=== PATIENT | male | born 1945 | race Caucasian/White ===

== ENCOUNTER 2023-09-30 10:27 | Inpatient (IN) | payer OTHER, SELFPAY ==
[2023-09-29 11:58] VITALS: BP 93/64
[2023-09-29 12:53] LABS: % Basophils 0.3 % (0-2); % Eosinophils 0.4 % (0-6); % Immature Granulocytes 0.4 % (0-0.5); % Lymphocytes 12.5 % (20.5-51.1); % Monocytes 9.9 % (1.7-9.3); % Neutrophils 76.5 % (42.2-75.2); Absolute Eosinophils 0.1 10^3/uL (0-0.7); Absolute Immature Granulocytes 0.1 10^3/uL (0-0.05); Absolute Lymphocytes 1.7 10^3/uL (1.2-3.4); Absolute Monocytes 1.3 10^3/uL (0.1-0.6); Absolute Neutrophils 10.2 10^3/uL (1.4-6.5); Hematocrit 29.1 % (39.0-52.0); Hemoglobin 9.7 g/dL (13.0-18.0); Mean Corp Hgb Conc. 33.3 g/dL (33.0-37.0); Mean Corpuscular Hgb 28.7 pg (27.0-31.0); Mean Corpuscular Volume 86.1 fL (80.0-94.0); Mean Platelet Volume 9.2 fL (7.4-10.4); Nucleated Red Blood Cells % 0 % (-); Platelet Count 625 10^3/uL (130-400); Red Blood Cell Count 3.38 10^6/uL (4.70-6.10); White Blood Cell Count 13.4 10^3/uL (4.8-10.8)
[2023-09-29 13:10] LABS: ALT (SGPT) 16 U/L (0-50); AST (SGOT) 22 U/L (17-59); Alkaline Phosphatase 86 U/L (38-126); Blood Urea Nitrogen 25 mg/dl (9-20); Calcium 8.4 mg/dl (8.4-10.2); Carbon Dioxide 26 mmol/L (22-30); Chloride 99 mmol/L (98-107); Glucose 100 mg/dl (70-99); Lipase 76 U/L (23-300); Potassium 3.3 mmol/L (3.5-5.1); Sodium 133 mmol/L (135-145); Total Bilirubin 0.5 mg/dl (0.2-1.3); Total Protein 5.8 g/dl (6.3-8.2); eGFR > 60.00
--- NOTE | 2023-09-29 15:30 | ED.GENMED ---
History of Present Illness
General
Chief Complaint: Abdominal Pain
Source: patient
Exam Limitations: none
Time Seen by Provider: 09/29/23 15:07
Nursing documentation reviewed up to this point in time: agreed with
Travel History
Have you had any contact with someone who has COVID-19?: No
Do you have any symptoms of coronavirus? Fever > 100 degrees, chills, cough, shortness of breath, sore throat, loss of taste or smell, muscle aches, or headache?: No
History of Present Illness
History of Present Illness:
Patient to ED by EMS. According to his sister, patient has not been eating or drinking much for the past 3-4 weeks. Over the past 2 days this has gotten worse. She states he has had vomiting and diarrhea for the past few days. No fever/chills.
Sister states he screams with abdominal pain at night, although he denies any abdominal pain. He is unsure why he is here. States he was visiting with sister and the next thing he new he was placed here. Appears weak, dry. Last admission here
was in april for colitis. He was then sent to Rehab although his sistser does not feel that he improved there. She reports he spends most of day in bed, does not want to get up, sit in chair.
Past History
Past History
ED Past Medical History: Arrthythmia (afib), CVA, HTN and Hypercholesterolemia
ED Past Surgical History: None
Social History
Tobacco: Former smoker (quit x 30 yrs)
Alcohol: None
Drug: None
Review of Systems
Review of Systems
Allergies reviewed?: Yes
All Other Systems: ROS reviewed and negative except as documented in HPI and ROS
Constitutional: Reports fatigue
EENT: Reports no symptoms
Respiratory: Reports no symptoms
Cardiac: Reports no symptoms
ABD/GI: Reports vomiting and diarrhea
: Reports no symptoms
Musculoskeletal: Reports back pain (low back pain)
Skin: Reports no symptoms
Neurological: Reports weakness
Psychiatric: Reports no symptoms
Phy Exam
General Physical Exam
General Presentation: mild distress
General age: appears older than age
General Skin: warm and dry
General Habitus: cachetic and frail
General Mental: alert
ENT Exam
ENT Exam: other (Dry mucous membranes)
Cardiovascular Exam
Cardiovascular Exam: regular rate/rhythm and no edema
Pulmonary Exam
Pulmonary Exam: lungs clear and no respiratory distress
Gastrointestinal Exam
Gastrointestinal Exam: normal bowel sounds, non tender, soft, no organomegaly, no pulsatile mass, non distended and no cva tenderness
Rectal Exam: normal external exam, normal sphincter tone and soft stool
Stool: black
Guaiac Status: positive
Musculoskeletal Exam
Musculoskeletal Exam: full ROM and neuro vasc intact
Psychiatric Exam
Psychiatric Exam: normal mood/affect
Course
Orders/Labs/Results
Orders:
Orders
09/29/23 12:04
Complete Blood Count/With Diff Urgent
Comprehensive Metabolic Panel Urgent
Lipase Urgent
TSH Reflex To Free T4 Urgent
Comment: ADD ON
09/29/23 Dinner
Clear Liquid
At Your Request: Full Participation
Does patient need a safe tray?: No
09/29/23 15:21
0.9% Sodium Chloride 1000 ml [Nss] 1,000 ml IV BOLUS
09/29/23 15:22
Iohexol [Omnipaque] See Protocol PO NOW STA
Ondansetron Injectable [Zofran] 4 mg IV NOW STA
09/29/23 15:31
CT Abd/pelvis W Iv Cont Urgent
Comment:
Reason For Exam: vomiting, diarrhea
09/29/23 15:32
Pantoprazole [Protonix IV] 40 mg IV NOW STA
09/29/23 15:35
Type+Screen Urgent
Lipase Urgent
Urinalysis Reflex To Culture Urgent
Date Specimen was Collected: 09/29/23
Time Specimen was Collected: 15:28
Urine Microscopic Reflex Cult Urgent
Urine Culture Urgent
THOMAS Source: U
Specimen Description:
Date Specimen was Collected: 09/29/23
Time Specimen was Collected: 15:28
09/29/23 15:51
Potassium Chloride [KCl] 40 meq 0.9% Sodium Chloride 250 ml [Nss] 250 ml IV NOW
09/29/23 19:36
Admit/Transfer Patient As Directed
Co-Sign Provider:
Level of Care: Observation services
Assign to:: Medical/Surgical
Physician / Group: philipp
Diagnosis: fecal impaction, anemia
09/29/23 19:37
Code Status As Directed
Resuscitation Status: Full Code
09/29/23 21:07
Activity As Directed
Activity Level: As Tolerated
Pneumatic Compression Sleeves As Directed
Type: Knee high
Vital Signs As Directed
Frequency: Per unit guidelines
DX Deep Vein Thrombosis Video Routine
09/29/23 22:00
Flush (0.9% Sodium Chloride) [Flush (Nss)] See Dose Instructions IV PER PROTOCOL
09/29/23 22:19
Pt Screening Request from Kaye Routine
09/30/23 06:00
Complete Blood Count/With Diff IN AM
Comprehensive Metabolic Panel IN AM
Ferritin Routine
Comment: ADD ON
Folate Routine
Comment: ADD ON
Iron Routine
Comment: ADD ON
Total Iron Binding Routine
Comment: ADD ON
Vitamin B12 Routine
Comment: ADD ON
09/30/23 07:[address] Non Medication Order As Directed
Physician Order: Please confirm home med rec and TT MD. Greco.
09/30/23 07:53
GASTROINTESTINAL CONSULT Routine
Consulting Provider: Yajaira Newman
Was physician already notified: Yes
09/30/23 08:00
0.9% Sodium Chloride [Nss (Preservative Free)] 10 ml IV BID
Pantoprazole [Protonix IV] 40 mg IV BID
09/30/23 10:25
Add On- LAB Routine
Tests Added?: iron,ferritin,tibc, b12 and folate level
Abnormal Lab Results
09/29/23 09/29/23 09/30/23
12:04 15:35 06:00
WBC 13.4 H 10^3/uL
(4.8-10.8)
RBC 3.38 L 10^6/uL 3.29 L 10^6/uL
(4.70-6.10) (4.70-6.10)
Hgb 9.7 L g/dL 9.5 L g/dL
(13.0-18.0) (13.0-18.0)
Hct 29.1 L % 29.1 L %
(39.0-52.0) (39.0-52.0)
MCHC 32.6 L g/dL
(33.0-37.0)
Plt Count 625 H 10^3/uL 437 H D 10^3/uL
(130-400) (130-400)
Abs Immat Gran (auto) 0.1 H 10^3/uL
(0-0.05)
Absolute Neuts (auto) 10.2 H 10^3/uL 6.7 H 10^3/uL
(1.4-6.5) (1.4-6.5)
Absolute Monos (auto) 1.3 H 10^3/uL 0.8 H 10^3/uL
(0.1-0.6) (0.1-0.6)
Neutrophils % 76.5 H %
(42.2-75.2)
Lymphocytes % 12.5 L % 16.3 L %
(20.5-51.1) (20.5-51.1)
Monocytes % 9.9 H %
(1.7-9.3)
Sodium 133 L mmol/L
(135-145)
Potassium 3.3 L mmol/L
(3.5-5.1)
BUN 25 H mg/dl 23 H mg/dl
(9-20) (9-20)
Glucose 100 H mg/dl
(70-99)
Iron 21 L ug/dl
(49-181)
% Saturation 7 L %
(20-50)
Ferritin 9.1 L ng/ml
(17.9-464.0)
Total Protein 5.8 L g/dl 5.5 L g/dl
(6.3-8.2) (6.3-8.2)
Albumin 3.0 L g/dl 2.7 L g/dl
(3.5-5.0) (3.5-5.0)
Urine Ketones Trace A
(Negative)
Urine Bilirubin 1+ A
(Negative)
Leukocyte Esterase Rfl Trace A
(Negative)
Urine Bacteria (Reflex) Moderate A
(Negative)
09/30/23 06:00
09/30/23 06:00
Vital Signs
Initial and Last Documented VS:
Initial Vital Signs
Temp Pulse Resp BP Pulse Ox
98.0 F 79 18 93/64 92
09/29/23 11:58 09/29/23 11:58 09/29/23 11:58 09/29/23 11:58 09/29/23 11:58
Last Documented Vital Signs
Temp Pulse Resp BP Pulse Ox
98.1 F 89 17 99/69 98
10/01/23 07:43 10/01/23 07:43 10/01/23 07:43 10/01/23 12:50 10/01/23 07:43
*Radiology
Radiology exam reviewed: radiology read reviewed
*Pulse Oximetry
Patient hypoxic: no
*Critical Care Note
Total Time (30-74mins, 75-104mins- exclusive of procedures): Not Applicable
Update Note
Update Note:
Patient to ED for weakness, failure to thrive, vomiting, diarrhea according to his sister. Patient is not sure why he is here. He denies any complaints. Sister denies any diagnosis of dementia but reports 'he has been off lately'. He appears weak
and frail. Oriented to person and place. Stool black, heme pos. Hgb decreased from admission in apr. Will admit for rectal bleeding. IVF, protonix initiated. K 3.3, KCL ordered. Sister and patient are agreeable to admission.
ED Attending Note
-
Portions of this chart may have been created with voice recognition software.� Occasional wrong word or��sound alike� substitutions may have occurred due to the inherent limitations of voice recognition software.
Discharge Plan
Departure
Patient Disposition: Admit
Date of Disposition: 09/29/23
Time of Disposition: 18:20
Presentation/result/management discussed w/ accepting MD/DO: Hospitalist
Condition: Fair
Covid-19: Not Applicable
Discharge Problem:
GI bleed, Failure to thrive
Interventions
Interventions:
*Risk Screen - Suicide Last Done: 09/29/23 21:54
*General Assessment Last Done: 09/29/23 12:01
*Neglect/Abuse Screening Last Done: 09/29/23 12:01
ED- Fall Risk Assessment Last Done: 09/29/23 15:25
*ED COVID-19 Vaccine History Last Done: 09/29/23 15:25
*Nursing Disposition Last Done: 09/29/23 20:48
RU-Pemmyq-Cuwevuwywy Assessment Last Done: 09/29/23 15:25
Discharge Date and Time
Discharge Date/Time: 09/29/23 21:21
[2023-09-29] MEDS: ZOFRAN 4 MG IV (15:57)
[2023-09-29] MEDS: NSS 1000 IV (15:57)
[2023-09-29] MEDS: PROTONIX IV 40 MG IV (15:57)
[2023-09-29 15:58] LABS: Urine Albumin Negative (Neg - Trace); Urine Bilirubin 1+ (Negative); Urine Character Clear (Clear); Urine Color Yellow; Urine Glucose Negative (Negative); Urine Ketone Trace (Negative); Urine Leukocyte Trace (Negative); Urine Nitrite Negative (Negative); Urine Occult Blood Negative (Negative); Urine Specific Gravity 1.025 (<1.030); Urine Urobilinogen 1+ (Neg - 1+)
[2023-09-29 16:05] LABS: Urine Mucus Moderate
[2023-09-29 16:06] LABS: Urine Bacteria Moderate (Negative); Urine Red Blood Cell 0-2 /HPF (0-2); Urine Squamous Cell 16-20 /LPF (Few)
[2023-09-29 16:14] LABS: Lipase 50 U/L (23-300)
[2023-09-29] MEDS: KCL 270 MEQ IV (16:33)
--- NOTE | 2023-09-29 18:37 | PHANOTE ---
Med Rec Note:
Pt states he does not know his medications, pt states sister/sister in law takes care of his medications. Attempted to will call order clerk to Notify Komal ([phone]), rang once and went to voicemail.
Home med list compiled from EMS face sheet and Dr Montes. Left unconfirmed due to being unable to confirm pt's home meds.
--- NOTE | 2023-09-29 19:39 | HPS.HSE ---
Addendum entered and electronically signed by Adeel Mann MD 09/29/23 21:55:
Protonix 40 IV BID started.
Original Note:
Family Physician
-
Family Physician: Sahil Milian
Chief Complaint
-
vomiting, diarrhea
History of Present Illness
78-year-old male with past medical history of atrial fibrillation, CVA, chronic HFpEF, hypertension, hypercholesteremia, GERD, CKD 3B presenting with decreased eating and drinking for the past 3 to 4 weeks. He has had vomiting and diarrhea for the
past few days. No fevers or chills. Sister states that he screams with abdominal pain at night although he denies any abdominal pain. He is not sure when his last bowel movement was.
Medical History
Past Medical History
Past Medical History: Reports Other (atrial fibrillation, CVA, chronic HFpEF, hypertension, hypercholesteremia, GERD, CKD 3B )
Past Surgical History: Reports None
Social History
Tobacco: Former Smoker
Alcohol: Occasional
Drug: None
Family History
Family History: Not pertinent
Allergies / Home Medications
Allergies reflects when Allergies were last updated in [facility].
Home Medications with original date entered in [facility]
Allergy/Medication List:
Allergies
Allergy/AdvReac Type Severity Reaction Status Date / Time
No Known Allergies Allergy Verified 09/29/23 11:58
Home Medications
omeprazole 20 mg capsule,delayed release 20 mg PO DAILY Gastrointestinal Issue 09/09/18
apixaban 5 mg tablet (Eliquis) 5 mg PO BID #120 tabs 09/14/18
furosemide 20 mg tablet 20 mg PO BID Fluid Retention/Swelling 04/17/23
losartan 25 mg tablet 25 mg PO DAILY Blood Pressure 04/17/23
rosuvastatin 5 mg tablet (Crestor) 5 mg PO DAILY High Cholesterol 04/17/23
metoprolol succinate 25 mg tablet,extended release 24 hr 25 mg PO DAILY 09/29/23
Review of Systems
-
History Source: Patient
A 12 point ROS was completed and negative except as noted: Yes
Constitutional: Reports No Symptoms
EENT: Reports No Symptoms
Respiratory: Reports No Symptoms
Cardiac: Reports No Symptoms
Abdomen/GI: Reports See HPI
: Reports No Symptoms
Musculoskeletal: Reports No Symptoms
Skin: Reports No Symptoms
Neurological: Reports No Symptoms
Endocrine: Reports No Symptoms
Hematologic/Lymphatic: Reports No Symptoms
Psych: Reports No Symptoms
Physical Exam
Vital Signs
Vital Signs
Temp Pulse Resp BP Pulse Ox
98.0 F 79 18 93/64 92
09/29/23 11:58 09/29/23 11:58 09/29/23 11:58 09/29/23 11:58 09/29/23 11:58
Physical Exam
General: Well Developed, Well Nourished and No Apparent Distress
HEENT: NormoCephalic, Moist mucous membranes and Atraumatic
Respiratory: Clear
Cardiac: S1/S2 and Regular Rhythm; No Murmur or Rub
GI: Soft, Non Tender, Non Distended, Normal Bowel Sounds and Tender; No Organomegaly
Rectal: Deferred by Provider
Musculoskeletal: No Clubbing, No Cyanosis and No Edema
Skin: No Rash
Neuro: Nonfocal/grossly intact
Laboratory Results
-
09/29/23 12:04
09/29/23 12:04
Laboratory Results
Total Bilirubin 0.5 mg/dl (0.2-1.3) 09/29/23 12:04
AST 22 U/L (17-59) 09/29/23 12:04
ALT 16 U/L (0-50) 09/29/23 12:04
Alkaline Phosphatase 86 U/L (38-126) 09/29/23 12:04
Lipase 50 U/L (23-300) 09/29/23 15:35
Data Reviewed
-
Lab Data: Labs Reviewed by me
Old Records: Reviewed
Impression/Plan
-
IMPRESSION:
PLAN:
# Fecal impaction
-Diarrhea could be overflow incontinence
-CT abdomen pelvis shows significant stool distention of the rectum most compatible with fecal impaction
-Check TSH
-Clear liquid diet
-GI consulted due to concern for underlying GI malignancy
# Progressive anemia concerning for underlying GI malignancy
-Hemoccult positive
-Hemoglobin of 9.7 from 15 in March
-GI consulted
# Hypokalemia
-Replete potassium
Atrial fibrillation
-Hold Eliquis
Chronic HFpEF
-Hold Lasix
History of CVA
Essential hypertension
-Hold losartan due to systolic blood pressure 90s
Hypercholesterolemia
-Continue statin
CKD 3B
-Renal function at baseline
GERD
Full code
DVT prophylaxis�SCDs
Clear liquid diet
[2023-09-29 21:18] VITALS: BP 119/81
--- NOTE | 2023-09-29 21:23 | PTCARENOTE ---
[facility] r[facility], and medsurg. pt was able to get out of the stretcher to standing scale then to bed with a r.w and a assist x 2. pt is on a bed alarm and has call arthur in reach. will continue to monitor.
[2023-09-29 22:25] LABS: TSH Reflex To Free T4 4.63 uIU/ml (0.47-4.68)
[2023-09-29 23:00] VITALS: BP 125/70
[2023-09-30 07:00] VITALS: BP 116/73
[2023-09-30 07:06] LABS: % Basophils 0.8 % (0-2); % Immature Granulocytes 0.4 % (0-0.5); % Lymphocytes 16.3 % (20.5-51.1); % Monocytes 8.5 % (1.7-9.3); Absolute Basophils 0.1 10^3/uL (0-0.2); Absolute Eosinophils 0.1 10^3/uL (0-0.7); Absolute Lymphocytes 1.5 10^3/uL (1.2-3.4); Absolute Monocytes 0.8 10^3/uL (0.1-0.6); Absolute Neutrophils 6.7 10^3/uL (1.4-6.5); Hematocrit 29.1 % (39.0-52.0); Hemoglobin 9.5 g/dL (13.0-18.0); Mean Corp Hgb Conc. 32.6 g/dL (33.0-37.0); Mean Corpuscular Hgb 28.9 pg (27.0-31.0); Mean Corpuscular Volume 88.4 fL (80.0-94.0); Mean Platelet Volume 9.3 fL (7.4-10.4); Nucleated Red Blood Cells % 0 % (-); Platelet Count 437 10^3/uL (130-400); Red Blood Cell Count 3.29 10^6/uL (4.70-6.10); Red Cell Dist. Width 14.4 % (11.5-14.5); White Blood Cell Count 9.2 10^3/uL (4.8-10.8)
[2023-09-30 07:12] LABS: ALT (SGPT) 14 U/L (0-50); AST (SGOT) 19 U/L (17-59); Albumin 2.7 g/dl (3.5-5.0); Alkaline Phosphatase 80 U/L (38-126); Blood Urea Nitrogen 23 mg/dl (9-20); Calcium 8.5 mg/dl (8.4-10.2); Carbon Dioxide 27 mmol/L (22-30); Chloride 103 mmol/L (98-107); Glucose 91 mg/dl (70-99); Sodium 137 mmol/L (135-145); Total Bilirubin 0.5 mg/dl (0.2-1.3); Total Protein 5.5 g/dl (6.3-8.2); eGFR > 60.00
[2023-09-30 07:26] LABS: Potassium 4.3 mmol/L (3.5-5.1)
[2023-09-30] MEDS: NSS (PRESERVATIVE FREE) 10 ML IV ×2 (09:04→20:39)
[2023-09-30] MEDS: PROTONIX IV 40 MG IV ×2 (09:05→20:38)
--- NOTE | 2023-09-30 10:24 | W.PN.HOSP.TC ---
Today's Communication/Plan
-
Enema ordered
anemia panel
home med rec pending
GI eval
PPI
Assessment / Plan
Assessment / Plan
# Fecal impaction
#Abdomen pain/nausea/vomiting 2/2 above
-Diarrhea could be overflow incontinence
-CT abdomen pelvis shows significant stool distention of the rectum most compatible with fecal impaction
-Clear liquid diet
-Enema ordered.
-GI consulted
# Progressive anemia concerning for underlying GI malignancy
-Hemoccult positive
-Hemoglobin of 9.7 from 15 in March
-Check anemia panel
-Denies ever undergoing colonoscopy.
-Blood consent scanned into [employer].
-GI consulted
#Thrombocytosis
-monitor for now.
# Hypokalemia
-Replete/monitor
Atrial fibrillation
-Hold Eliquis
Chronic HFpEF
-Hold Lasix
History of CVA
Hx of saddle PE in 2019
-Eliquis held
Essential hypertension
-Hold losartan due to systolic blood pressure 90s
Hypercholesterolemia
-Continue statin
CKD 3B
-Renal function at baseline
GERD
Full code
DVT prophylaxis�SCDs
await med rec
Anticipated Discharge: > 48 hours
Subjective/Interval History
-
Date of Service: September 30, 2023
states of mild abdomen discomfort
no nausea or vomiting
Objective Data
-
Labs:
Laboratory Results
09/30/23
06:00
WBC 9.2
Hgb 9.5 L
Hct 29.1 L
Plt Count 437 H D
Sodium 137
Potassium 4.3 D
Chloride 103
Carbon Dioxide 27
BUN 23 H
Creatinine 1.0
Glucose 91
Calcium 8.5
Total Bilirubin 0.5
AST 19
ALT 14
Alkaline Phosphatase 80
Vital Signs:
Vital Signs
Temp Pulse Resp BP Pulse Ox
97.8 F 95 18 116/73 97
09/30/23 07:00 09/30/23 07:00 09/30/23 07:00 09/30/23 07:00 09/30/23 07:00
Physical Exam
-
General: No Apparent Distress, Appears Chronically Ill and Cachectic
HEENT: Normocephalic, Atraumatic and Moist Mucous Membranes
Respiratory: Clear to Auscultation
Cardiac: Regular Rhythm and S1/S2; Negative Murmur, Rub or Gallop
GI: Soft, Nontender, Normal Bowel Sounds and Distended; Negative Organomegaly
Rectal: Deferred by Provider
Musculoskeletal: No Clubbing, No Cyanosis and No Edema
Skin: Negative Rash
Neuro: Awake, No Motor Deficits and Nonfocal/Grossly Intact
Psych: Calm
Data Reviewed
-
Total Time Spent with Patient (in minutes): 55
[2023-09-30 11:06] LABS: Iron 21 ug/dl (49-181)
[2023-09-30 11:07] LABS: Percent Saturation 7 % (20-50); Total Iron Binding Capacity 287 ug/dl (261-462)
--- NOTE | 2023-09-30 11:08 | CM ---
CM met with pt at bedside - initial assignment completed
Pt reports he lives with his sister in law in a one story home
He walks with out assist, does some shopping, meal prep, no longer drives
No DME in home
Denies past HH/SNF
Will have ride home at d/c
PCP - Dr Param love
Pharm - [facility]
Discussed HOWE
Plan - anticipate home to previous setting, needs tbd
--- NOTE | 2023-09-30 11:40 | CON.GI ---
Addendum entered and electronically signed by Yajaira Newman DO 09/30/23 19:12:
Patient seen and examined independently of the physician social work assistant. I agree with her note with my additions below
Ramos is a 78-year-old male with history of atrial fibrillation on Eliquis, CVA, CKD, GERD who came to the emergency room on 09/28 initially with nausea vomiting likely secondary to a fecal impaction. Patient states he has not moved his bowels in
over a week which normally is every other day. He denies any changes in medications. He is persistent about wanting to be discharged. He just wants us to help him move his bowels then he wants to go home. I discussed with him that he has iron
deficiency anemia and he could have a malignancy in his GI tract. He has never had a colonoscopy or an endoscopy. He says he understands
# Constipation -distention of the rectum is most prominent on CT imaging. Digitally unable to reach any significant stool
-- Enema then magnesium citrate then you will need to go home on a bowel regimen
-- Unclear what is causing this significant constipation in the setting of never having a colonoscopy and iron deficiency anemia I would recommend a slow preparation and proceed with colonoscopy
# Iron deficiency anemia -patient getting IV iron. Would avoid oral iron especially in the setting of a significant constipation
-- I am concerned about a GI malignancy
-- I had a long conversation with the patient. He has no family that is alive. He has a brother who . [id number]. He states he does not want undergo any procedures and he understands that he could have a
malignancy and he is okay with this. He would prefer to just have bowel movements and then to be discharged.
-- I made him repeat everything saying he was clear that he could have a cancer and we may be discharging him without that knowledge. He agreed to that
-- If he changes his mind we can always revisit that
-- PPI
-- Patient denies any dysphagia, GERD, chronic nausea vomiting. Denies weight loss
Original Note:
Consultation
-
Date/Time Consultation Requested: 09/30/23 0753
Date/Time Consultation Performed: 09/30/23 1115
Requesting Provider: Dr. Rios
Performing Provider: Dr. Newman / Jyoti Kaur PA-C
Reason for Consultation: anemia, constipation
Medical History
Chief Complaint / HPI
Chief Complaint: constipation
History of Present Illness:
This is a 78 year old male with a past medical history of atrial fibrillation (on Eliquis), CVA, HTN, hyperlipidemia, CKD and GERD who presented to the ER yesterday 09/28 with complaints of vomiting, diarrhea, decreased appetite and weakness. Patient
is somewhat of a poor historian, mildly confused but very pleasant, and cannot elaborate further on what brought him to the hospital. He currently denies abdominal pain, nausea, vomiting, diarrhea, fevers or chills. He states he has been
constipated, which is a chronic issue for him, which he tells me he usually manages by drinking coffee. His typical bowel habit is a formed bowel movement once a day. He states his last BM was 1 week ago. He denies any black, tarry or bloody stools.
He admits to heartburn, which he typically gets daily after drinking coffee. Tums helps relieve the heartburn. He also complains of decreased appetite and thinks he has lost weight but cannot estimate how much. He has never had an endoscopy or
colonoscopy. He was admitted at for colitis in March. Patient is on Eliquis, patient is uncertain but last dose assumed to be day of arrival yesterday. Labs in the ER showed leukocytosis with WBC count of 13.4, Hgb 9.7 with normocytic
indices, platelets 625, INR 1.58 and elevated PT 19.1. Creatinine 1.0, BUN 23, with normal LFTs (total bili 0.5, AST 19, ALT 14, and alk phos 80). Serum iron and iron sat are low, ferritin is still pending. CT scan of the abdomen/pelvis shows fecal
impaction with large colonic stool burden. No evidence of bowel wall thickening, obstruction or inflammation. He denies any family history of colon cancer or GI malignancies.
Past Medical History
Past Medical History: Other (atrial fibrillation (on Eliquis), CVA, HTN, hyperlipidemia, CKD and GERD)
Past Surgical History: Other (adenoids)
Social History
Tobacco: Former Smoker (quit 20 years ago)
Alcohol: Occasional (1 glass of wine once a week)
Drug: None
Living: Alone (he reports he lives in his own apartment at [facility] with family who live in the same building (his sister, Stefanie))
Employment: Retired (worked in a [employer])
Family History
Family History: Other (no family history of GI malignancies or IBD)
Allergies / Home Medications
Allergy/AdvReac Type Severity Reaction Status Date / Time
No Known Allergies Allergy Verified 09/29/23 11:58
Medication Instructions Recorded
omeprazole 20 mg capsule,delayed 20 mg PO DAILY Gastrointestinal 09/09/18
release Issue
furosemide 20 mg tablet 20 mg PO BID Fluid 04/17/23
Retention/Swelling
losartan 25 mg tablet 25 mg PO DAILY Blood Pressure 04/17/23
rosuvastatin 5 mg tablet (Crestor) 5 mg PO DAILY High Cholesterol 04/17/23
metoprolol succinate 25 mg 25 mg PO DAILY Blood Pressure 09/29/23
tablet,extended release 24 hr
apixaban 5 mg tablet (Eliquis) 5 mg PO BID Blood Clot 09/30/23
Prevention/Tx
Review of Systems
-
History Source: Patient
All other systems: A 12 pt ROS was Negative except as stated above in HPI
Vital Signs
Temp Pulse Resp BP Pulse Ox
97.8 F 95 18 116/73 97
09/30/23 07:00 09/30/23 07:00 09/30/23 07:00 09/30/23 07:00 09/30/23 07:00
Physical Exam
Exam
General: Other (thin-appearing male in no apparent distress)
Respiratory: Clear
Cardiac: Regular Rhythm
GI: Soft, Non Tender, Non Distended and Normal Bowel Sounds
Rectal: Brown, Hem Positive and Other (soft, brown, heme POSITIVE stool in the rectal vault, no palpable stool impaction)
Skin: Warm and Dry
Neuro: Awake, Alert and Oriented (x 2 (person, time))
Psych: Calm
Results
WBC 9.2 10^3/uL (4.8-10.8) 09/30/23 06:00
Hgb 9.5 g/dL (13.0-18.0) L 09/30/23 06:00
Hct 29.1 % (39.0-52.0) L 09/30/23 06:00
MCV 88.4 fL (80.0-94.0) 09/30/23 06:00
Plt Count 437 10^3/uL (130-400) H D 09/30/23 06:00
Absolute Neuts (auto) 6.7 10^3/uL (1.4-6.5) H 09/30/23 06:00
Sodium 137 mmol/L (135-145) 09/30/23 06:00
Potassium 4.3 mmol/L (3.5-5.1) D 09/30/23 06:00
Chloride 103 mmol/L (98-107) 09/30/23 06:00
Carbon Dioxide 27 mmol/L (22-30) 09/30/23 06:00
BUN 23 mg/dl (9-20) H 09/30/23 06:00
Creatinine 1.0 mg/dL (0.7-1.3) 09/30/23 06:00
Calcium 8.5 mg/dl (8.4-10.2) 09/30/23 06:00
Total Bilirubin 0.5 mg/dl (0.2-1.3) 09/30/23 06:00
AST 19 U/L (17-59) 09/30/23 06:00
ALT 14 U/L (0-50) 09/30/23 06:00
Alkaline Phosphatase 80 U/L (38-126) 09/30/23 06:00
Lipase 50 U/L (23-300) 09/29/23 15:35
Diagnostic Image Results:
CT abdomen/pelvis 09/28/22:
� Significant stool distention of the rectum is most compatible with a fecal impaction. Large stool burden elsewhere in the colon.
Prior GI Procedures:
EGD: never
Colonoscopy: never
Assessment / Plan
-
78 year old male with atrial fibrillation (on Eliquis), CVA, HTN, hyperlipidemia, CKD and GERD who presented to the ER yesterday 09/28 with complaints of vomiting, diarrhea, decreased appetite and weakness. Patient is somewhat of a poor historian,
mildly confused but very pleasant, and cannot elaborate further on what brought him to the hospital. He currently denies abdominal pain, nausea, vomiting, diarrhea, fevers or chills. He states he has been constipated, which is a chronic issue for
him, which he tells me he usually manages by drinking coffee. His typical bowel habit is a formed bowel movement once a day. He states his last BM was 1 week ago. He denies any black, tarry or bloody stools. He admits to heartburn, which he
typically gets daily after drinking coffee. Tums helps relieve the heartburn. He also complains of decreased appetite and thinks he has lost weight but cannot estimate how much. He has never had an endoscopy or colonoscopy. He was admitted at for
colitis in March. Patient is on Eliquis, patient is uncertain but last dose assumed to be day of arrival yesterday. Labs in the ER showed leukocytosis with WBC count of 13.4, Hgb 9.7 with normocytic indices, platelets 625, INR 1.58 and elevated
PT 19.1. Creatinine 1.0, BUN 23, with normal LFTs (total bili 0.5, AST 19, ALT 14, and alk phos 80). Serum iron and iron sat are low, ferritin is still pending. CT scan of the abdomen/pelvis shows fecal impaction with large colonic stool burden. No
evidence of bowel wall thickening, obstruction or inflammation. No family history of colon cancer or GI malignancies.
IMPRESSION / PLAN:
Anemia, with heme positive stools, concern for GI bleeding
-Hgb 9.5 (was 9.7 on admission) with normocytic indices
-baseline Hgb was in the 13-15 range previously
-serum iron, iron sat low, ferritin pending
-Eliquis on hold, last dose presumed to be day of admission 09/29/23
-trend Hgb
-transfuse if Hgb falls below 7
-continue PPI (pantoprazole)
-endoscopy and colonoscopy for further workup of the anemia/heme (+) stools - inpatient vs outpatient
Constipation/Fecal Impaction
-pt reports chronic constipation and last bowel movement 1 week ago
-CT showing significant stool distension of the rectum, suggesting fecal impaction
-no palpable impaction on digital rectal exam
-agree with enema, which has been ordered
-add Miralax
-TSH pending
-continue clear liquids
Other medical issues managed as per hospitalist.
-
-
Thank you for consultation and allowing me to participate in the patient's care. Please call the operations staff specialist security GI physician during the after hours with any questions or concerns.
[2023-09-30 14:12] LABS: Ferritin 9.1 ng/ml (17.9-464.0)
[2023-09-30 14:43] LABS: Folate 14.5 ng/ml (2.76-20); Vitamin B12 573 pg/ml (239-931)
[2023-09-30] MEDS: MIRALAX 17 GRAMS PO (14:49)
[2023-09-30] MEDS: FERRLECIT 110 MG IV (14:49)
[2023-09-30 15:00] VITALS: BP 103/66
--- NOTE | 2023-09-30 18:00 | PTCARENOTE ---
Addendum entered by Kyra Deluna RN 10/01/23 06:42:
ing enema. Black stool noted.
Original Note:
Pt received Tap water enema w/o difficulty. Pt tolerated well. Pt was already having BM while start
[2023-09-30] MEDS: CITROMA 300 ML PO (20:35)
[2023-09-30 23:50] VITALS: BP 103/61
[2023-10-01 07:43] VITALS: BP 99/69
[2023-10-01] MEDS: NSS (PRESERVATIVE FREE) 10 ML IV ×2 (08:39→19:51)
[2023-10-01] MEDS: MIRALAX 17 GRAMS PO (08:39)
[2023-10-01] MEDS: PROTONIX IV 40 MG IV ×2 (08:40→19:51)
[2023-10-01 09:11] LABS: % Basophils 1.4 % (0-2); % Eosinophils 3.4 % (0-6); % Immature Granulocytes 0.5 % (0-0.5); % Lymphocytes 24.3 % (20.5-51.1); % Monocytes 9.8 % (1.7-9.3); % Neutrophils 60.6 % (42.2-75.2); Absolute Basophils 0.1 10^3/uL (0-0.2); Absolute Eosinophils 0.2 10^3/uL (0-0.7); Absolute Lymphocytes 1.1 10^3/uL (1.2-3.4); Absolute Monocytes 0.4 10^3/uL (0.1-0.6); Absolute Neutrophils 2.7 10^3/uL (1.4-6.5); Hematocrit 24.8 % (39.0-52.0); Hemoglobin 8.1 g/dL (13.0-18.0); Mean Corp Hgb Conc. 32.7 g/dL (33.0-37.0); Mean Corpuscular Hgb 28.2 pg (27.0-31.0); Mean Corpuscular Volume 86.4 fL (80.0-94.0); Nucleated Red Blood Cells % 0 % (-); Platelet Count 367 10^3/uL (130-400); Red Blood Cell Count 2.87 10^6/uL (4.70-6.10); Red Cell Dist. Width 14.2 % (11.5-14.5); White Blood Cell Count 4.4 10^3/uL (4.8-10.8)
[2023-10-01 09:30] LABS: Blood Urea Nitrogen 14 mg/dl (9-20); Calcium 7.7 mg/dl (8.4-10.2); Carbon Dioxide 28 mmol/L (22-30); Chloride 105 mmol/L (98-107); Glucose 81 mg/dl (70-99); Potassium 4.3 mmol/L (3.5-5.1); Sodium 131 mmol/L (135-145); eGFR > 60.00
--- NOTE | 2023-10-01 09:34 | W.PN.GI.CBS2 ---
Addendum entered and electronically signed by Ray Miller MD 10/01/23 16:06:
I saw and examined the patient.
The COUNTER CLERK or PA's note was reviewed and I agree with the note.
Comment: Passing BMs with regimen
ABD soft NTND
REC:
Pt now agreeable to colonoscopy to evaluate constipation and anemia
Will try prepping tonight for procedure tomorrow
Continue bowel regimen after colonoscopy with miralax
Original Note:
Today's Communication / Plan
-
Continue bowel regimen
Patient still refusing any procedures
Assessment / Plan
-
78 year old male with atrial fibrillation (on Eliquis), CVA, HTN, hyperlipidemia, CKD and GERD who presented to the ER yesterday 09/28 with complaints of vomiting, diarrhea, decreased appetite and weakness. Patient is somewhat of a poor historian,
mildly confused but very pleasant, and cannot elaborate further on what brought him to the hospital. He currently denies abdominal pain, nausea, vomiting, diarrhea, fevers or chills. He states he has been constipated, which is a chronic issue for
him, which he tells me he usually manages by drinking coffee. His typical bowel habit is a formed bowel movement once a day. He states his last BM was 1 week ago. He denies any black, tarry or bloody stools. He admits to heartburn, which he
typically gets daily after drinking coffee. Tums helps relieve the heartburn. He also complains of decreased appetite and thinks he has lost weight but cannot estimate how much. He has never had an endoscopy or colonoscopy. He was admitted at for
colitis in March. Patient is on Eliquis, patient is uncertain but last dose assumed to be day of arrival yesterday. Labs in the ER showed leukocytosis with WBC count of 13.4, Hgb 9.7 with normocytic indices, platelets 625, INR 1.58 and elevated
PT 19.1. Creatinine 1.0, BUN 23, with normal LFTs (total bili 0.5, AST 19, ALT 14, and alk phos 80). Serum iron and iron sat are low, ferritin is still pending. CT scan of the abdomen/pelvis shows fecal impaction with large colonic stool burden. No
evidence of bowel wall thickening, obstruction or inflammation. No family history of colon cancer or GI malignancies.
IMPRESSION / PLAN:
Iron deficiency Anemia, with heme positive stools, concern for GI bleeding
-Hgb 9.5 (was 9.7 on admission) with normocytic indices. Now with drop to 8.1
-baseline Hgb was in the 13-15 range previously
-Eliquis on hold, last dose presumed to be day of admission 09/29/23
-trend Hgb
-transfuse if Hgb falls below 7
-continue PPI (pantoprazole)
-- there is concern about a GI malignancy
-- (Patient conversation with Dr. Newman): I had a long conversation with the patient.� He has no family that is alive.� He has a brother who .� He lives [id number].� He states he does not want undergo any procedures and he
understands that he could have a malignancy and he is okay with this.� He would prefer to just have bowel movements and then to be discharged.
-- I made him repeat everything saying he was clear that he could have a cancer and we may be discharging him without that knowledge.� He agreed to that.
--Patient still declining EGD/[place] at this time 10/01/23
Constipation/Fecal Impaction
-Moving bowels after Mag Citrate
-Would continue Miralax daily
-Unknown cause for constipation.
-Would recommend colonoscopy given above issues with iron deficiency
Subjective
Subjective
Date of Service: October 01, 2023
Saw patient and also discussed with RN who has him today and she also had him yesterday. Patient had 2 BMs yesterday, these were very dark and paste like. Patient denies any abdominal pain and is actually looking forward to his breakfast that just
arrived. Hgb had dropped from 9.5 to 8.1. Again, the patient was asked if he wanted any endoscopic procedures as there is concern especially now with dropping Hgb, heme positive stools and constipation. He again is declining EGD/[place]. He states 'I
just want to rest and go home'.
Objective
Data Reviewed
Laboratory Data:
Laboratory Results
10/01/23 08:38
10/01/23 08:38
Laboratory Results
Total Bilirubin 0.5 mg/dl (0.2-1.3) 09/30/23 06:00
AST 19 U/L (17-59) 09/30/23 06:00
ALT 14 U/L (0-50) 09/30/23 06:00
Alkaline Phosphatase 80 U/L (38-126) 09/30/23 06:00
Lipase 50 U/L (23-300) 09/29/23 15:35
Vital Signs and I&O:
Vital Signs
Temp Pulse Resp BP Pulse Ox
98.1 F 89 17 99/69 98
10/01/23 07:43 10/01/23 07:43 10/01/23 07:43 10/01/23 07:43 10/01/23 07:43
I&O
09/30/23 10/01/23 10/02/23
06:59 06:59 06:59
Intake Total 1440 / 1440
Output Total 1550 / 1550
Balance -110 / -110
Physical Exam
Physical Exam
HEENT: Anicteric
Cardiology: Normal Sinus Rhythm
Pulmonary: Clear
GI: Soft, Non Distended, Non Tender and Normal Bowel Sounds
Extremities: No Edema
Neuro: Non Focal
[2023-10-01 09:48] VITALS: BP 103/70; PULSE 82; O2SAT 97
[2023-10-01 09:49] VITALS: BP 103/70; PULSE 82
--- NOTE | 2023-10-01 10:26 | W.PN.HOSP.TC ---
Addendum entered and electronically signed by Marcellus Rios MD 10/01/23 10:54:
Updated [id number] Stefanie over the phone in detail
Original Note:
Today's Communication/Plan
-
Trend h/h
midodrine
bowel regimen
Clears
EGD/Colon patient agreed
Assessment / Plan
Assessment / Plan
# Fecal impaction
#Abdomen pain/nausea/vomiting 2/2 above
-Diarrhea could be overflow incontinence
-CT abdomen pelvis shows significant stool distention of the rectum most compatible with fecal impaction
- Flip back to Clear liquid diet as patient agreed to undergoing procedures.
-Enema ordered.
-GI consulted
# Progressive anemia concerning for underlying GI malignancy
#Iron deficiency anemia
-Hemoccult positive
-Hemoglobin of 8.1 from march
-Anemia panel noted.
-Started on IV iron.
-Denies ever undergoing colonoscopy.
-Blood consent scanned into [employer].
-GI consulted
#Thrombocytosis
-monitor for now. Resolved.
# Hypokalemia
-Replete/monitor
Atrial fibrillation
-Hold Eliquis
Chronic HFpEF
-Hold Lasix
History of CVA
Hx of saddle PE in 2019
-Eliquis held
Essential hypertension
-Hold losartan due to systolic blood pressure 90s
-started midodrine.
Hypercholesterolemia
-Continue statin
CKD 3B
-Renal function at baseline
GERD
Full code
DVT prophylaxis�SCDs in setting of anemia/procedural requirement/concern for malignancy
d/w with GI
Awaiting med rec
Called [facility] per patient request to update no response. Left VM.
Anticipated Discharge: > 48 hours
Subjective/Interval History
-
Date of Service: October 01, 2023
eating breakfast
Objective Data
-
Labs:
Laboratory Results
10/01/23
08:38
WBC 4.4 L
Hgb 8.1 L
Hct 24.8 L
Plt Count 367
Sodium 131 L
Potassium 4.3
Chloride 105
Carbon Dioxide 28
BUN 14
Creatinine 1.0
Glucose 81
Calcium 7.7 L
Vital Signs:
Vital Signs
Temp Pulse Resp BP Pulse Ox
98.1 F 89 17 99/69 98
10/01/23 07:43 10/01/23 07:43 10/01/23 07:43 10/01/23 07:43 10/01/23 07:43
I&O
09/30/23 10/01/23 10/02/23
06:59 06:59 06:59
Intake Total 1440 / 1440
Output Total 1550 / 1550
Balance -110 / -110
Physical Exam
-
General: No Apparent Distress, Appears Chronically Ill and Cachectic
HEENT: Normocephalic, Atraumatic, Moist Mucous Membranes and Other (pale )
Respiratory: Clear to Auscultation
Cardiac: Regular Rhythm and S1/S2; Negative Murmur, Rub or Gallop
GI: Soft, Nontender, Normal Bowel Sounds and Distended; Negative Organomegaly
Rectal: Deferred by Provider
Musculoskeletal: No Clubbing, No Cyanosis and No Edema
Skin: Negative Rash
Neuro: Awake, No Motor Deficits and Nonfocal/Grossly Intact
Psych: Calm
Data Reviewed
-
Total Time Spent with Patient (in minutes): 55
--- NOTE | 2023-10-01 11:35 | PN.CDI ---
CDI
- -
CDI:
Physician Documentation Request
Admit Date: 09/30/23 10:27
Dear Doctor Blanca,
Patient admitted with fecal impaction
Recent sodium resulted as follows:
09/30/23 10/01/23
06:00 08:38
Sodium 137 131 L
Based on the above, could you provide a diagnosis that supports the above lab abnormalities and additional evaluation/ monitoring:
Hyponatremia
Abnormal lab value clinically insignificant
Other
Use of terms such as suspected, likely, concern for, or probable (associated with a specific diagnosis that is being evaluated, monitored, or treated as if it exists) are acceptable and can be coded in the inpatient setting, when documented at the
time of discharge.
Thank you,
Komal Cook RN, BSN
CDI Specialist
tiger text
Please use your independent medical judgment in providing your response.
[2023-10-01] MEDS: FERRLECIT 110 MG IV (12:50)
[2023-10-01] MEDS: ProAmatine 5 MG PO ×2 (12:50→17:57)
[2023-10-01 15:53] VITALS: BP 100/73
--- NOTE | 2023-10-01 16:07 | CM ---
PT/OT recommending snf - pt confused
attempted to reach family
Called Komal [phone] unable to LM - mailbox full
Called Stefanie - [phone] - no answer
CM will attempt to follow up
Plan - anticipate snf at d/c
[2023-10-01] MEDS: NULYTELY SOLUTION 4 LITERS PO (17:57)
[2023-10-01 19:54] LABS: Hematocrit 25.4 % (39.0-52.0); Hemoglobin 8.4 g/dL (13.0-18.0)
[2023-10-01 23:15] VITALS: BP 111/67
--- NOTE | 2023-10-02 05:19 | PTCARENOTE ---
Pt alert and oriented. No pain reported. Pt afebrile, VSS. IV site C/D/I. Lungs clear, pt on room air. No nausea or vomiting. Pt unable to tolerate bowel prep for planned colonoscopy despite frequent encouragement throughout the night. Condom
catheter intact. SCDs in place.
[2023-10-02 06:00] VITALS: BMI 15.4
[2023-10-02 06:52] LABS: % Basophils 1.1 % (0-2); % Eosinophils 4.2 % (0-6); % Immature Granulocytes 0.4 % (0-0.5); % Lymphocytes 24.8 % (20.5-51.1); % Monocytes 9.2 % (1.7-9.3); % Neutrophils 60.3 % (42.2-75.2); Absolute Basophils 0.1 10^3/uL (0-0.2); Absolute Eosinophils 0.2 10^3/uL (0-0.7); Absolute Lymphocytes 1.4 10^3/uL (1.2-3.4); Absolute Monocytes 0.5 10^3/uL (0.1-0.6); Absolute Neutrophils 3.3 10^3/uL (1.4-6.5); Hematocrit 26.8 % (39.0-52.0); Hemoglobin 8.7 g/dL (13.0-18.0); Mean Corp Hgb Conc. 32.5 g/dL (33.0-37.0); Mean Corpuscular Hgb 28.7 pg (27.0-31.0); Mean Corpuscular Volume 88.4 fL (80.0-94.0); Mean Platelet Volume 9.1 fL (7.4-10.4); Nucleated Red Blood Cells % 0 % (-); Platelet Count 393 10^3/uL (130-400); Red Blood Cell Count 3.03 10^6/uL (4.70-6.10); Red Cell Dist. Width 14.4 % (11.5-14.5); White Blood Cell Count 5.5 10^3/uL (4.8-10.8)
[2023-10-02 06:59] LABS: INR 1.24; PT 15.4 Sec (11.4-14.6)
[2023-10-02 07:30] LABS: Blood Urea Nitrogen 11 mg/dl (9-20); Calcium 7.9 mg/dl (8.4-10.2); Carbon Dioxide 27 mmol/L (22-30); Chloride 105 mmol/L (98-107); Estimated Creatinine Clearance 50 ml/min; Glucose 83 mg/dl (70-99); Potassium 4.3 mmol/L (3.5-5.1); Sodium 133 mmol/L (135-145); eGFR > 60.00
[2023-10-02 07:44] VITALS: BP 109/75
[2023-10-02] MEDS: MIRALAX 17 GRAMS PO ×2 (09:41→20:28)
[2023-10-02] MEDS: PROTONIX IV 40 MG IV ×2 (09:42→20:28)
[2023-10-02] MEDS: ProAmatine 5 MG PO ×3 (09:42→17:22)
[2023-10-02] MEDS: NSS (PRESERVATIVE FREE) 10 ML IV ×2 (10:12→20:28)
--- NOTE | 2023-10-02 11:04 | W.PN.HOSP.TC ---
Addendum entered and electronically signed by Marcellus Rios MD 10/02/23 12:24:
Hyponatremia mild
Original Note:
Today's Communication/Plan
-
Holding BP meds
hold eliquis
drinking prep
GI recs
Trend hgb
Assessment / Plan
Assessment / Plan
#Fecal impaction
#Abdomen pain/nausea/vomiting 2/2 above
-Diarrhea could be overflow incontinence
-CT abdomen pelvis shows significant stool distention of the rectum most compatible with fecal impaction
-Flip back to Clear liquid diet as patient agreed to undergoing procedures.
-Enema ordered.
-GI consulted
# Progressive anemia concerning for underlying GI malignancy
#Iron deficiency anemia
-Hemoccult positive
-Hemoglobin of 8.7 from in March
-Anemia panel noted.
-Started on IV iron.
-Denies ever undergoing colonoscopy.
-Blood consent scanned into [employer].
-Drinking Prep-EGD/Colon plan for today.
-GI consulted
#Thrombocytosis
-monitor for now. Resolved.
# Hypokalemia
-Replete/monitor
Atrial fibrillation
-Hold Eliquis
Chronic HFpEF
-Hold Lasix
History of CVA
Hx of saddle PE in 2019
-Eliquis held
Essential hypertension
-Hold losartan due to systolic blood pressure 90s
-started midodrine.
Hypercholesterolemia
-not on statin.
CKD 3B
-Renal function at baseline
GERD
Full code
DVT prophylaxis�SCDs in setting of anemia/procedural requirement/concern for malignancy
updated [facility] Watts over the phone in details on 09/30
Anticipated Discharge: > 48 hours
Subjective/Interval History
-
Date of Service: October 02, 2023
Drinking C-scope prep
Objective Data
-
Labs:
Laboratory Results
10/02/23
06:22
WBC 5.5
Hgb 8.7 L
Hct 26.8 L
Plt Count 393
PT 15.4 H
INR 1.24
Sodium 133 L
Potassium 4.3
Chloride 105
Carbon Dioxide 27
BUN 11
Creatinine 1.0
Glucose 83
Calcium 7.9 L
Vital Signs:
Vital Signs
Temp Pulse Resp BP Pulse Ox
97.9 F 81 16 109/75 97
10/02/23 07:44 10/02/23 07:44 10/02/23 07:44 10/02/23 07:44 10/02/23 07:44
I&O
10/01/23 10/02/23 10/03/23
06:59 06:59 06:59
Intake Total 1440 / 1440 1500 / 1500
Output Total 1550 / 1550 2250 / 2250
Balance -110 / -110 -750 / -750
Physical Exam
-
General: No Apparent Distress, Appears Chronically Ill, Cachectic and Other (Pale )
HEENT: Normocephalic, Atraumatic, Moist Mucous Membranes and Other (pale )
Respiratory: Clear to Auscultation
Cardiac: Regular Rhythm and S1/S2; Negative Murmur, Rub or Gallop
GI: Soft, Nontender, Normal Bowel Sounds and Distended; Negative Organomegaly
Rectal: Deferred by Provider
Musculoskeletal: No Clubbing, No Cyanosis and No Edema
Skin: Negative Rash
Neuro: Awake, Alert, Oriented, No Motor Deficits and Nonfocal/Grossly Intact
Psych: Calm
[2023-10-02 12:41] VITALS: BP 112/76
[2023-10-02] MEDS: FERRLECIT 110 MG IV (14:44)
--- NOTE | 2023-10-02 14:53 | W.PN.GI.CBS2 ---
Today's Communication / Plan
-
Pt does not want colonoscopy at this time
He wants to correct his constipation and not proceed further
He was willing to consider OP colonoscopy to exclude CRC
Will increase miralax to BID and monitor BMs
Assessment / Plan
-
Summary: 78 year old male with atrial fibrillation (on Eliquis), CVA who presented to the ER 09/28 with complaints of vomiting, diarrhea, decreased appetite and weakness. Patient is somewhat of a poor historian. He states he has been constipated,
which is a chronic issue for him, which he tells me he usually manages by drinking coffee. His typical bowel habit is a formed bowel movement once a day. He states his last BM was 1 week ago. He denies any black, tarry or bloody stools. He has
never had an endoscopy or colonoscopy.
He was admitted at for colitis in March. Hgb 9.[address] scan of the abdomen/pelvis shows fecal impaction with large colonic stool burden.
Impression:
Iron deficiency Anemia, with heme positive stools
Constipation/Fecal Impaction
Declines colonoscopy. Attempted prep 09/30, then aborted. Does not want colonoscopy at this time
Subjective
Subjective
Date of Service: October 02, 2023
Pt did not take prep for colonoscopy. Passing soft dark brown stool
Objective
Data Reviewed
Laboratory Data:
Laboratory Results
10/02/23 06:22
10/02/23 06:22
Laboratory Results
PT 15.4 Sec (11.4-14.6) H 10/02/23 06:22
INR 1.24 10/02/23 06:22
Total Bilirubin 0.5 mg/dl (0.2-1.3) 09/30/23 06:00
AST 19 U/L (17-59) 09/30/23 06:00
ALT 14 U/L (0-50) 09/30/23 06:00
Alkaline Phosphatase 80 U/L (38-126) 09/30/23 06:00
Lipase 50 U/L (23-300) 09/29/23 15:35
Vital Signs and I&O:
Vital Signs
Temp Pulse Resp BP Pulse Ox
97.9 F 81 16 112/76 97
10/02/23 07:44 10/02/23 07:44 10/02/23 07:44 10/02/23 12:44 10/02/23 07:44
I&O
10/01/23 10/02/23 10/03/23
06:59 06:59 06:59
Intake Total 1440 / 1440 1500 / 1500
Output Total 1550 / 1550 2250 / 2250
Balance -110 / -110 -750 / -750
Physical Exam
Physical Exam
GI: Soft, Non Distended and Non Tender
[2023-10-02 16:00] VITALS: BP 108/68
[2023-10-02] MEDS: DULCOLAX 10 MG PO (22:00)
[2023-10-02 23:35] VITALS: BP 113/72
[2023-10-03 07:56] VITALS: BP 109/76
--- NOTE | 2023-10-03 08:51 | W.PN.HOSP.TC ---
Today's Communication/Plan
-
Await patient decision
Continue with bowel regimen
Trend H&H
Holding Eliquis
Assessment / Plan
Assessment / Plan
#Fecal impaction
#Abdomen pain/nausea/vomiting 2/2 above
-Diarrhea could be overflow incontinence
-CT abdomen pelvis shows significant stool distention of the rectum most compatible with fecal impaction
-having loose tarry bm.
-GI consulted
# Progressive anemia concerning for underlying GI malignancy
#Iron deficiency anemia
-Hemoccult positive
-Hemoglobin of 8 from 15 in March
-Anemia panel noted.
-Started on IV iron.
-Denies ever undergoing colonoscopy.
-Blood consent scanned into [facility].
-Patient was undergoing prep yesterday and per gastroenterology correspondence patient wanted to hold off on procedures. Discussed with patient in detail states he will think about it and will inform in 24 hours. Also discussed this with patient
[id number] Stefanie who will discuss with patient. Patient might benefit from colonoscopy prep during daytime and may require prolonged prep.
-GI consulted
#Thrombocytosis
-monitor for now. Resolved.
# Hypokalemia
-Replete/monitor
Chronic HFpEF
-Hold Lasix
History of CVA
Hx of saddle PE in 2019
-Eliquis restart
Essential hypertension
-Hold losartan due to systolic blood pressure 90s
-started midodrine.
-Toprol held too.
Hypercholesterolemia
-not on statin.
CKD 3B
-Renal function at baseline
GERD
Full code
DVT prophylaxis�SCDs in setting of anemia/procedural requirement/concern for malignancy
updated CONSUELO Watts over the phone in details on 09/30 and 10/02
PT/OT-SNF once medically ready.
Anticipated Discharge: > 48 hours
Subjective/Interval History
-
Date of Service: October 03, 2023
tolerating diet
Objective Data
-
Labs:
Laboratory Results
10/03/23
08:01
WBC Pending
Hgb Pending
Hct Pending
Plt Count Pending
Vital Signs:
Vital Signs
Temp Pulse Resp BP Pulse Ox
98 F 71 16 109/76 96
10/03/23 07:56 10/03/23 07:56 10/03/23 07:56 10/03/23 07:56 10/03/23 07:56
I&O
10/02/23 10/03/23 10/04/23
06:59 06:59 06:59
Intake Total 1500 / 1500 1140 / 1140
Output Total 2250 / 2250 400 / 400
Balance -750 / -750 740 / 740
Physical Exam
-
General: No Apparent Distress, Appears Chronically Ill, Cachectic and Other (Pale )
HEENT: Normocephalic, Atraumatic, Moist Mucous Membranes and Other (pale )
Respiratory: Clear to Auscultation
Cardiac: Regular Rhythm and S1/S2; Negative Murmur, Rub or Gallop
GI: Soft, Nontender, Normal Bowel Sounds and Distended; Negative Organomegaly
Rectal: Deferred by Provider
Musculoskeletal: No Clubbing, No Cyanosis and No Edema
Skin: Negative Rash
Neuro: Awake, Alert, Oriented, No Motor Deficits and Nonfocal/Grossly Intact
Psych: Calm and Other (poor judgement ); Negative Intact Judgement/Insight
[2023-10-03 09:12] LABS: % Basophils 0.7 % (0-2); % Eosinophils 4.1 % (0-6); % Immature Granulocytes 0.4 % (0-0.5); % Lymphocytes 21.7 % (20.5-51.1); % Monocytes 8.2 % (1.7-9.3); % Neutrophils 64.9 % (42.2-75.2); Absolute Eosinophils 0.2 10^3/uL (0-0.7); Absolute Lymphocytes 1.2 10^3/uL (1.2-3.4); Absolute Monocytes 0.5 10^3/uL (0.1-0.6); Absolute Neutrophils 3.7 10^3/uL (1.4-6.5); Hematocrit 24.7 % (39.0-52.0); Mean Corp Hgb Conc. 32.4 g/dL (33.0-37.0); Mean Corpuscular Hgb 28.5 pg (27.0-31.0); Mean Corpuscular Volume 87.9 fL (80.0-94.0); Nucleated Red Blood Cells % 0 % (-); Platelet Count 331 10^3/uL (130-400); Red Blood Cell Count 2.81 10^6/uL (4.70-6.10); Red Cell Dist. Width 14.5 % (11.5-14.5); White Blood Cell Count 5.6 10^3/uL (4.8-10.8)
[2023-10-03] MEDS: MIRALAX 17 GRAMS PO ×3 (09:59→21:28)
[2023-10-03] MEDS: NSS (PRESERVATIVE FREE) 10 ML IV ×2 (09:59→21:27)
[2023-10-03] MEDS: ProAmatine 5 MG PO ×2 (09:59→17:41)
[2023-10-03] MEDS: PROTONIX IV 40 MG IV ×2 (09:59→21:28)
[2023-10-03] MEDS: ProAmatine PO (12:28)
[2023-10-03 12:29] VITALS: BP 120/70
[2023-10-03 15:20] VITALS: BMI 15.4
[2023-10-03] MEDS: FERRLECIT 110 MG IV (15:33)
[2023-10-03 15:35] VITALS: BP 103/70
--- NOTE | 2023-10-03 17:12 | W.PN.GI.CBS2 ---
Today's Communication / Plan
-
Change to clears for tomorrow.
Increase miralax to TID and then give bowel prep tomorrow pm
Plan colonoscopy Wednesday 10/04
Assessment / Plan
-
Summary: 78 year old male with atrial fibrillation (on Eliquis), CVA who presented to the ER 09/28 with complaints of vomiting, diarrhea, decreased appetite and weakness. Patient is somewhat of a poor historian. He states he has been constipated,
which is a chronic issue for him, which he tells me he usually manages by drinking coffee. His typical bowel habit is a formed bowel movement once a day. He states his last BM was 1 week ago. He denies any black, tarry or bloody stools. He has
never had an endoscopy or colonoscopy.
He was admitted at for colitis in March. Hgb 9.[address] scan of the abdomen/pelvis shows fecal impaction with large colonic stool burden.
Impression:
Iron deficiency Anemia, with heme positive stools
Constipation/Fecal Impaction
Attempted prep 09/30, then aborted. Declined colonoscopy 10/01, but now agreeable
Subjective
Subjective
Date of Service: October 03, 2023
No BMs today. Eating dinner.
Objective
Data Reviewed
Laboratory Data:
Laboratory Results
10/03/23 09:02
10/02/23 06:22
Laboratory Results
PT 15.4 Sec (11.4-14.6) H 10/02/23 06:22
INR 1.24 10/02/23 06:22
Total Bilirubin 0.5 mg/dl (0.2-1.3) 09/30/23 06:00
AST 19 U/L (17-59) 09/30/23 06:00
ALT 14 U/L (0-50) 09/30/23 06:00
Alkaline Phosphatase 80 U/L (38-126) 09/30/23 06:00
Lipase 50 U/L (23-300) 09/29/23 15:35
Vital Signs and I&O:
Vital Signs
Temp Pulse Resp BP Pulse Ox
98.5 F 64 16 103/70 97
10/03/23 15:35 10/03/23 15:35 10/03/23 15:35 10/03/23 15:35 10/03/23 15:35
I&O
10/02/23 10/03/23 10/04/23
06:59 06:59 06:59
Intake Total 1500 / 1500 1140 / 1140
Output Total 2250 / 2250 400 / 400
Balance -750 / -750 740 / 740
Physical Exam
Physical Exam
GI: Soft, Non Distended and Non Tender
[2023-10-03 23:05] VITALS: BP 111/65
[2023-10-04 06:54] LABS: % Basophils 0.9 % (0-2); % Eosinophils 3.8 % (0-6); % Immature Granulocytes 0.5 % (0-0.5); % Lymphocytes 22.7 % (20.5-51.1); % Monocytes 8.4 % (1.7-9.3); % Neutrophils 63.7 % (42.2-75.2); Absolute Basophils 0.1 10^3/uL (0-0.2); Absolute Eosinophils 0.2 10^3/uL (0-0.7); Absolute Lymphocytes 1.3 10^3/uL (1.2-3.4); Absolute Monocytes 0.5 10^3/uL (0.1-0.6); Absolute Neutrophils 3.5 10^3/uL (1.4-6.5); Hematocrit 26.7 % (39.0-52.0); Hemoglobin 8.5 g/dL (13.0-18.0); Mean Corp Hgb Conc. 31.8 g/dL (33.0-37.0); Mean Corpuscular Hgb 28.4 pg (27.0-31.0); Mean Corpuscular Volume 89.3 fL (80.0-94.0); Mean Platelet Volume 9.5 fL (7.4-10.4); Nucleated Red Blood Cells % 0 % (-); Platelet Count 342 10^3/uL (130-400); Red Blood Cell Count 2.99 10^6/uL (4.70-6.10); Red Cell Dist. Width 14.9 % (11.5-14.5); White Blood Cell Count 5.5 10^3/uL (4.8-10.8)
[2023-10-04 07:00] VITALS: BP 125/83
[2023-10-04 07:04] LABS: Blood Urea Nitrogen 9 mg/dl (9-20); Calcium 7.8 mg/dl (8.4-10.2); Carbon Dioxide 23 mmol/L (22-30); Chloride 109 mmol/L (98-107); Estimated Creatinine Clearance 50 ml/min; Glucose 80 mg/dl (70-99); Potassium 4.1 mmol/L (3.5-5.1); Sodium 133 mmol/L (135-145); eGFR > 60.00
[2023-10-04] MEDS: ProAmatine PO ×3 (08:43→17:16)
[2023-10-04] MEDS: PROTONIX IV 40 MG IV ×2 (08:45→20:01)
[2023-10-04] MEDS: MIRALAX 17 GRAMS PO ×2 (08:46→17:14)
[2023-10-04] MEDS: NSS (PRESERVATIVE FREE) 10 ML IV ×2 (08:46→20:02)
--- NOTE | 2023-10-04 09:38 | W.PN.HOSP.TC ---
Today's Communication/Plan
-
clears, colonoscopy tomorrow
appreciate GI
Assessment / Plan
Assessment / Plan
#Fecal impaction
#Abdomen pain/nausea/vomiting 2/2 above
-Diarrhea could be overflow incontinence
-CT abdomen pelvis shows significant stool distention of the rectum most compatible with fecal impaction
-s/p bowel regimen
-now having loose tarry bm.
-GI consulted
# Progressive anemia concerning for underlying GI malignancy
#Iron deficiency anemia
-Hemoccult positive
-Hemoglobin of 8 from in March
-Anemia panel noted.
-Started on IV iron.
-Denies ever undergoing colonoscopy.
-Blood consent scanned into [facility].
-patient now plans to undergo colonoscopy; plans for bowel prep today and colonoscopy tomorrow
-GI consult appreciated
#Thrombocytosis
-monitor for now. Resolved.
# Hypokalemia
-Replete/monitor
Chronic HFpEF
-Hold Lasix
History of CVA
Hx of saddle PE in 2019
-Eliquis restart
Essential hypertension
-Hold losartan due to systolic blood pressure 90s
-started midodrine.
-Toprol held too.
Hypercholesterolemia
-not on statin.
CKD 3B
-Renal function at baseline
GERD
Full code
DVT prophylaxis�SCDs in setting of anemia/procedural requirement/concern for malignancy
updated CONSEULO Stefanie over the phone in details on 09/30 and 10/02
PT/OT-SNF once medically ready.
Anticipated Discharge: 24 - 48 hours
Subjective/Interval History
-
Date of Service: October 04, 2023
seen eating breakfast
feeling okay
denies dizziness, no chest pain
Objective Data
-
Labs:
Laboratory Results
10/04/23
05:52
WBC 5.5
Hgb 8.5 L
Hct 26.7 L
Plt Count 342
Sodium 133 L
Potassium 4.1
Chloride 109 H
Carbon Dioxide 23
BUN 9
Creatinine 1.0
Glucose 80
Calcium 7.8 L
Vital Signs:
Vital Signs
Temp Pulse Resp BP Pulse Ox
98.8 F 90 17 125/83 94
10/04/23 07:00 10/04/23 07:00 10/04/23 07:00 10/04/23 08:43 10/04/23 07:00
I&O
10/03/23 10/04/23 10/05/23
06:59 06:59 06:59
Intake Total 1140 / 1140 960 / 960
Output Total 400 / 400
Balance 740 / 740 960 / 960
Review of Systems
-
History Source: Patient
All other systems: Reviewed and negative
Physical Exam
-
General: No Apparent Distress, Appears Chronically Ill, Cachectic and Other (Pale )
HEENT: Normocephalic, Atraumatic, Moist Mucous Membranes and Other (pale )
Respiratory: Clear to Auscultation
Cardiac: Regular Rhythm and S1/S2; Negative Murmur, Rub or Gallop
GI: Soft, Nontender, Normal Bowel Sounds and Distended; Negative Organomegaly
Rectal: Deferred by Provider
Musculoskeletal: No Clubbing, No Cyanosis and No Edema
Skin: Negative Rash
Neuro: Awake, Alert, Oriented, No Motor Deficits and Nonfocal/Grossly Intact
Psych: Calm and Other (poor judgement ); Negative Intact Judgement/Insight
Data Reviewed
-
Diagnostic Radiology: Report Reviewed by me
Labs: Labs Reviewed by me
[2023-10-04 12:00] VITALS: BMI 14.8
--- NOTE | 2023-10-04 13:00 | W.PN.GI.CBS2 ---
Today's Communication / Plan
-
colonoscopy tomorrow
Assessment / Plan
-
Summary: 78 year old male with atrial fibrillation (on Eliquis), CVA who presented to the ER 09/28 with complaints of vomiting, diarrhea, decreased appetite and weakness. Patient is somewhat of a poor historian. He states he has been constipated,
which is a chronic issue for him, which he tells me he usually manages by drinking coffee. His typical bowel habit is a formed bowel movement once a day. He states his last BM was 1 week ago. He denies any black, tarry or bloody stools. He has
never had an endoscopy or colonoscopy.
He was admitted at for colitis in March. Hgb 9.[address] scan of the abdomen/pelvis shows fecal impaction with large colonic stool burden.
Impression:
Iron deficiency Anemia, with heme positive stools
Constipation/Fecal Impaction
Attempted prep 09/30, then aborted. Declined colonoscopy 10/01, but now agreeable
Plan
-[facility] scheduled for 10/05/23
-Miralax prep as patient did not drink Colyte.
Subjective
Subjective
Date of Service: October 04, 2023
Patient with brown stool. Hgb 8.5. Tolerating clears. He is agreeable for Colonoscopy. Will do Miralax Prep.
Objective
Data Reviewed
Laboratory Data:
Laboratory Results
10/04/23 05:52
10/04/23 05:52
Laboratory Results
PT 15.4 Sec (11.4-14.6) H 10/02/23 06:22
INR 1.24 10/02/23 06:22
Total Bilirubin 0.5 mg/dl (0.2-1.3) 09/30/23 06:00
AST 19 U/L (17-59) 09/30/23 06:00
ALT 14 U/L (0-50) 09/30/23 06:00
Alkaline Phosphatase 80 U/L (38-126) 09/30/23 06:00
Lipase 50 U/L (23-300) 09/29/23 15:35
Vital Signs and I&O:
Vital Signs
Temp Pulse Resp BP Pulse Ox
98.8 F 90 17 125/83 94
10/04/23 07:00 10/04/23 07:00 10/04/23 07:00 10/04/23 08:43 10/04/23 07:00
I&O
10/03/23 10/04/23 10/05/23
06:59 06:59 06:59
Intake Total 1140 / 1140 960 / 960
Output Total 400 / 400
Balance 740 / 740 960 / 960
Physical Exam
Physical Exam
HEENT: Anicteric
Cardiology: Normal Sinus Rhythm
Pulmonary: Clear (anterior)
GI: Soft, Non Distended, Non Tender and Normal Bowel Sounds
Neuro: Non Focal
--- NOTE | 2023-10-04 13:07 | W.PN.GI.CBS2 ---
Today's Communication / Plan
-
Cont Miralax TID
Pt agreeable to prep for colonoscopy
Give miralax prep tonight for colonoscopy tomorrow to evaluate constipation and anemia
Assessment / Plan
-
Summary: 78 year old male with atrial fibrillation (on Eliquis), CVA who presented to the ER 09/28 with complaints of vomiting, diarrhea, decreased appetite and weakness. Patient is somewhat of a poor historian. He states he has been constipated,
which is a chronic issue for him, which he tells me he usually manages by drinking coffee. His typical bowel habit is a formed bowel movement once a day. He states his last BM was 1 week ago. He denies any black, tarry or bloody stools. He has
never had an endoscopy or colonoscopy.
He was admitted at for colitis in March. Hgb 9.[address] scan of the abdomen/pelvis shows fecal impaction with large colonic stool burden.
Impression:
Iron deficiency Anemia, with heme positive stools
Constipation/Fecal Impaction
Attempted prep 09/30, then aborted. Declined colonoscopy 10/01, but now agreeable
Subjective
Subjective
Date of Service: October 04, 2023
RN reports pt had BM, but he did not realize it and states no BMs. Tolerating clears
Objective
Data Reviewed
Laboratory Data:
Laboratory Results
10/04/23 05:52
10/04/23 05:52
Laboratory Results
PT 15.4 Sec (11.4-14.6) H 10/02/23 06:22
INR 1.24 10/02/23 06:22
Total Bilirubin 0.5 mg/dl (0.2-1.3) 09/30/23 06:00
AST 19 U/L (17-59) 09/30/23 06:00
ALT 14 U/L (0-50) 09/30/23 06:00
Alkaline Phosphatase 80 U/L (38-126) 09/30/23 06:00
Lipase 50 U/L (23-300) 09/29/23 15:35
Vital Signs and I&O:
Vital Signs
Temp Pulse Resp BP Pulse Ox
98.8 F 90 17 125/83 94
10/04/23 07:00 10/04/23 07:00 10/04/23 07:00 10/04/23 08:43 10/04/23 07:00
I&O
10/03/23 10/04/23 10/05/23
06:59 06:59 06:59
Intake Total 1140 / 1140 960 / 960
Output Total 400 / 400
Balance 740 / 740 960 / 960
Physical Exam
Physical Exam
GI: Soft, Non Distended and Non Tender
[2023-10-04] MEDS: FERRLECIT 110 MG IV (13:50)
[2023-10-04 15:00] VITALS: BP 107/79
[2023-10-04] MEDS: MIRALAX 51 GRAMS PO ×3 (17:14→22:33)
[2023-10-04] MEDS: MIRALAX PO ×2 (21:40→21:42)
[2023-10-04 23:49] VITALS: BP 132/76
[2023-10-05 08:03] VITALS: BP 117/77
--- NOTE | 2023-10-05 08:08 | W.PN.HOSP.TC ---
Today's Communication/Plan
-
NPO for colonoscopy today
Assessment / Plan
Assessment / Plan
#Fecal impaction
#Abdomen pain/nausea/vomiting 2/2 above
-Diarrhea likely overflow incontinence
-CT abdomen pelvis shows significant stool distention of the rectum most compatible with fecal impaction
-s/p bowel regimen
-now having loose tarry bm; now s/p prep
-GI consult appreciated - plan for colonoscopy today
# Progressive anemia concerning for underlying GI malignancy
#Iron deficiency anemia
-Hemoccult positive
-Hemoglobin of 8 from in March
-Anemia panel noted.
-Started on IV iron.
-Denies ever undergoing colonoscopy.
-Blood consent scanned into [facility].
-GI consult appreciated; plan for colo today
#Thrombocytosis
-monitor for now. Resolved.
# Hypokalemia
-Replete/monitor
Chronic HFpEF
-resume lasix tomorrow (once back on diet)
History of CVA
Hx of saddle PE in 2019
-Eliquis held for procedure - resume when OK with GI
Essential hypertension
-IMPLEMENTATION ENGINEER Metop and Losartan held
-stop midodrine and monitor BP
Hypercholesterolemia
-not on statin.
CKD 3B
-Renal function at baseline
GERD
Full code
DVT prophylaxis�SCDs in setting of anemia/procedural requirement/concern for malignancy
updated CONSUEL[facility] Stefanie over the phone in details on 09/30 and 10/02
PT/OT-SNF once medically ready.
Anticipated Discharge: 24 - 48 hours
Subjective/Interval History
-
Date of Service: October 05, 2023
denies pain, lightheadedness, or dizziness
re-explained purpose of procedure to him
Objective Data
-
Labs:
Laboratory Results
10/05/23
08:05
WBC Pending
Hgb Pending
Hct Pending
Plt Count Pending
Sodium Pending
Potassium Pending
Chloride Pending
Carbon Dioxide Pending
BUN Pending
Creatinine Pending
Glucose Pending
Calcium Pending
Vital Signs:
Vital Signs
Temp Pulse Resp BP Pulse Ox
97.5 F 88 16 117/77 97
10/05/23 08:03 10/05/23 08:03 10/05/23 08:03 10/05/23 08:03 10/05/23 08:03
I&O
10/04/23 10/05/23 10/06/23
06:59 06:59 06:59
Intake Total 960 / 960 780 / 780
Balance 960 / 960 780 / 780
Review of Systems
-
History Source: Patient
All other systems: Reviewed and negative
Physical Exam
-
General: No Apparent Distress, Appears Chronically Ill, Cachectic and Other (Pale )
HEENT: Normocephalic, Atraumatic, Moist Mucous Membranes and Other (pale )
Respiratory: Clear to Auscultation
Cardiac: Regular Rhythm and S1/S2; Negative Murmur, Rub or Gallop
GI: Soft, Nontender, Normal Bowel Sounds and Distended; Negative Organomegaly
Rectal: Deferred by Provider
Musculoskeletal: No Clubbing, No Cyanosis and No Edema
Skin: Negative Rash
Neuro: Awake, Alert, Oriented, No Motor Deficits and Nonfocal/Grossly Intact
Psych: Calm
Data Reviewed
-
Diagnostic Radiology: Report Reviewed by me
Labs: Labs Reviewed by me
[2023-10-05] MEDS: MIRALAX 17 GRAMS PO ×3 (08:16→22:29)
[2023-10-05] MEDS: PROTONIX IV 40 MG IV ×2 (08:16→20:33)
[2023-10-05] MEDS: NSS (PRESERVATIVE FREE) 10 ML IV ×2 (08:17→20:34)
[2023-10-05] MEDS: ProAmatine PO (08:24)
[2023-10-05 08:49] LABS: Hematocrit 27.7 % (39.0-52.0); Hemoglobin 9.5 g/dL (13.0-18.0); Mean Corp Hgb Conc. 34.3 g/dL (33.0-37.0); Mean Corpuscular Hgb 29.7 pg (27.0-31.0); Mean Corpuscular Volume 86.6 fL (80.0-94.0); Platelet Count 330 10^3/uL (130-400); Red Cell Dist. Width 15.7 % (11.5-14.5); White Blood Cell Count 7.6 10^3/uL (4.8-10.8)
[2023-10-05 09:01] LABS: Blood Urea Nitrogen 6 mg/dl (9-20); Calcium 8.1 mg/dl (8.4-10.2); Carbon Dioxide 24 mmol/L (22-30); Chloride 105 mmol/L (98-107); Estimated Creatinine Clearance 53 ml/min; Glucose 93 mg/dl (70-99); Potassium 3.5 mmol/L (3.5-5.1); Sodium 133 mmol/L (135-145); eGFR > 60.00
[2023-10-05] MEDS: KCL 270 MEQ IV (10:54)
--- NOTE | 2023-10-05 11:17 | CM ---
CM following for d/c planning
No beds available at facilities chosen
Spoke with pt - referred to Stefanie whom he stays with
Spoke with Stefanie - suggested [facility] (pt at facility previously) and [facility]
Will send referrals in [facility]
Plan - SNF at d/c - tbd
[2023-10-05 15:54] VITALS: BP 115/80
--- NOTE | 2023-10-05 16:20 | PTCARENOTE ---
pt returned from [facility] tachy irregular, applying monitor afib. d/w cardiology. betablocker and bolus.
[2023-10-05] MEDS: TOPROL XL 25 MG PO (16:21)
[2023-10-05] MEDS: NSS 500 IV (16:41)
[2023-10-05 19:45] VITALS: BP 127/79
[2023-10-05] MEDS: FLUSH (NSS) 2 FLUSH IV (20:35)
[2023-10-06] VITALS (9 sets, daily range): BP systolic 101–121; BP diastolic 62–80; PULSE 87; O2SAT 98; BMI 15.3
--- NOTE | 2023-10-06 05:28 | PTCARENOTE ---
Tap water enema administered as ordered. Patient unable to hold. He had a small loose BM with enema and a moderate loose BM mid shift. Tolerated Miralax as ordered.
[2023-10-06 06:02] LABS: Hematocrit 25.9 % (39.0-52.0); Hemoglobin 8.5 g/dL (13.0-18.0); Mean Corp Hgb Conc. 32.8 g/dL (33.0-37.0); Mean Corpuscular Hgb 28.9 pg (27.0-31.0); Mean Corpuscular Volume 88.1 fL (80.0-94.0); Mean Platelet Volume 9.3 fL (7.4-10.4); Platelet Count 278 10^3/uL (130-400); Red Blood Cell Count 2.94 10^6/uL (4.70-6.10); Red Cell Dist. Width 16.1 % (11.5-14.5); White Blood Cell Count 6.9 10^3/uL (4.8-10.8)
[2023-10-06 06:26] LABS: Blood Urea Nitrogen 6 mg/dl (9-20); Calcium 7.7 mg/dl (8.4-10.2); Carbon Dioxide 20 mmol/L (22-30); Chloride 109 mmol/L (98-107); Estimated Creatinine Clearance 53 ml/min; Glucose 82 mg/dl (70-99); Potassium 3.9 mmol/L (3.5-5.1); Sodium 132 mmol/L (135-145); eGFR > 60.00
[2023-10-06] MEDS: NSS (PRESERVATIVE FREE) 10 ML IV ×2 (08:07→20:40)
[2023-10-06] MEDS: PROTONIX IV 40 MG IV ×2 (08:07→20:40)
[2023-10-06] MEDS: TOPROL XL 25 MG PO (08:08)
[2023-10-06] MEDS: MIRALAX 17 GRAMS PO ×2 (08:08→17:07)
--- NOTE | 2023-10-06 10:53 | W.PN.HOSP.TC ---
Today's Communication/Plan
-
see plan
Assessment / Plan
Assessment / Plan
EGD/COLO
10/04
Impression:� � � � � � - Esophageal ulcers with no bleeding and no stigmata
�� � � � � � � � � � � of recent bleeding. Biopsied.
�� � � � � � � � � � � - Benign-appearing esophageal stenosis.
�� � � � � � � � � � � - Nodular mucosa in the esophagus. Biopsied.
�� � � � � � � � � � � - Z-line irregular, 28 to 40 cm from the incisors.
�� � � � � � � � � � � Biopsied.
�� � � � � � � � � � � - 4 cm hiatal hernia.
�� � � � � � � � � � � - Normal stomach.
Recommendation:� � � � - Continue present medications. Start protonix 40 BID.
�� � � � � � � � � � � - Await pathology results.
�� � � � � � � � � � � - Clear liquid diet (see colon report).
�� � � � � � � � � � � - Repeat upper endoscopy in 8 weeks to check healing
�� � � � � � � � � � � with Dr. Banks advanced endo with possible dilation if
�� � � � � � � � � � � patient agreeable (would need to be done in 11/21).
#Fecal impaction
#Abdomen pain/nausea/vomiting 2/2 above
-Diarrhea likely overflow incontinence
-CT abdomen pelvis shows significant stool distention of the rectum most compatible with fecal impaction
-s/p bowel regimen and prep but patient remained with impaction on colo 10/04
-clears
-F/U further GI recs for repeat colo
# Progressive anemia concerning for underlying GI malignancy
#Iron deficiency anemia
-Hemoglobin of 8 from 15 in March
-Started on IV iron.
-Blood consent scanned into [facility].
-GI consult appreciated
-s/p EGD 10/04 with finding esophageal ulcers, see above
-continue PPI
-F/U GI plans on colo
#Thrombocytosis
-monitor for now. Resolved.
# Hypokalemia
-Replete/monitor
Chronic HFpEF
-resume lasix once back on diet
History of CVA
Hx of saddle PE in 2019
-Eliquis held for procedure - resume when OK with GI
Afib with RVR
-during procedure
-DELIVERY SPECIALIST Metop resumed
Essential hypertension
-DELIVERY SPECIALIST Metop
- Losartan held
-stop midodrine and monitor BP
Hypercholesterolemia
-not on statin.
CKD 3B
-Renal function at baseline
GERD
Full code
DVT prophylaxis�SCDs in setting of anemia/procedural requirement/concern for malignancy
updated CONSUELO Watts over the phone in details on 09/30 and 10/02
PT/OT-SNF once medically ready.
Anticipated Discharge: 24 - 48 hours
Subjective/Interval History
-
Date of Service: October 06, 2023
feeling well
Objective Data
-
Labs:
Laboratory Results
10/06/23
05:37
WBC 6.9
Hgb 8.5 L
Hct 25.9 L
Plt Count 278
Sodium 132 L
Potassium 3.9
Chloride 109 H
Carbon Dioxide 20 L
BUN 6 L
Creatinine 0.9
Glucose 82
Calcium 7.7 L
Vital Signs:
Vital Signs
Temp Pulse Resp BP Pulse Ox
98.4 F 71 17 121/70 98
10/06/23 07:28 10/06/23 08:08 10/06/23 07:28 10/06/23 08:08 10/06/23 07:28
I&O
10/05/23 10/06/23 10/07/23
06:59 06:59 06:59
Intake Total 780 / 780
Output Total 50 / 50
Balance 780 / 780 -50 / -50
Review of Systems
-
History Source: Patient
All other systems: Reviewed and negative
Physical Exam
-
General: No Apparent Distress, Appears Chronically Ill, Cachectic and Other (Pale )
HEENT: Normocephalic, Atraumatic, Moist Mucous Membranes and Other (pale )
Respiratory: Clear to Auscultation
Cardiac: Regular Rhythm and S1/S2; Negative Murmur, Rub or Gallop
GI: Soft, Nontender, Normal Bowel Sounds and Distended; Negative Organomegaly
Rectal: Deferred by Provider
Musculoskeletal: No Clubbing, No Cyanosis and No Edema
Skin: Negative Rash
Neuro: Awake, Alert, Oriented, No Motor Deficits and Nonfocal/Grossly Intact
Psych: Calm
Data Reviewed
-
Diagnostic Radiology: Report Reviewed by me
Labs: Labs Reviewed by me
--- NOTE | 2023-10-06 14:05 | W.PN.GI.CBS2 ---
Addendum entered and electronically signed by Stephenie Alan MD 10/06/23 15:06:
I saw and examined the patient.
The PRINCIPAL SECURITY ARCHITECT or PA's note was reviewed and I agree with the note.
Comment: 78-year-old male past medical history of A-fib on Eliquis, CVA presenting September 28 with vomiting, diarrhea, decreased appetite and weakness. Found to have iron deficiency anemia. Underwent upper endoscopy with me yesterday with esophageal
ulcers with a stricture. Attempted to colonoscopy but he was impacted so I disimpacted him under anesthesia.
In regards to his upper GI findings, recommend PPI twice daily and repeat endoscopy in 8 weeks. I made an appointment for him with Dr. Banks November 07 at 11:30 am with Jyoti Kaur. Card given to patient and added to discharge summary. Plan repeat
endoscopy tentatively in 8 weeks.
In regards to his constipation, I ordered 2 enemas yesterday unclear if he got both but he did at least get 1. I ordered another enema today with magnesium citrate as his creatinine is normal. Will prep him again for tentative colonoscopy
tomorrow. If at this point he does not have a clear colon, unclear if we will be able to prep him for colonoscopy which I discussed with both the patient and the hospitalist.
Original Note:
Today's Communication / Plan
-
colo
Assessment / Plan
-
Summary: 78 year old male with atrial fibrillation (on Eliquis), CVA who presented to the ER 09/28 with complaints of vomiting, diarrhea, decreased appetite and weakness. Patient is somewhat of a poor historian. He states he has been constipated,
which is a chronic issue for him, which he tells me he usually manages by drinking coffee. His typical bowel habit is a formed bowel movement once a day. He states his last BM was 1 week ago. He denies any black, tarry or bloody stools. He has
never had an endoscopy or colonoscopy.
He was admitted at for colitis in March. Hgb 9.[address] scan of the abdomen/pelvis shows fecal impaction with large colonic stool burden.
EGD 10/05/23 ([facility]):
�� - Esophageal ulcers with no bleeding and no stigmata
�� � � � � � � � � � � of recent bleeding. Biopsied.
�� � � � � � � � � � � - Benign-appearing esophageal stenosis.
�� � � � � � � � � � � - Nodular mucosa in the esophagus. Biopsied.
�� � � � � � � � � � � - Z-line irregular, 28 to 40 cm from the incisors.
�� � � � � � � � � � � Biopsied.
�� � � � � � � � � � � - 4 cm hiatal hernia.
�� � � � � � � � � � � - Normal stomach.
COLO 10/05/23: ([facility])
�- Preparation of the colon was poor.
�� � � � � � � � � � � - Stool in the rectum.
�� � � � � � � � � � � - No specimens collected.
Impression:
Iron deficiency Anemia, with heme positive stools
Constipation/Fecal Impaction
Attempted prep 09/30, then aborted. Declined colonoscopy 10/01, but now agreeable. Attempted 10/04 with impaction, disimpacted. Repeat [place] tomorrow
EGD 10/05/23 Esoph ulcers, esoph stenosis, 4 cm HH
Plan:
-Repeat colonoscopy attempt tomorrow
-Clears today
-Enema, Mag Citrate and Miralax prep
-CBC, BMP, in am
-Continue Protonix 40 mg BID
-Await path results from EGD
-Repeat EGD in [address] Banks in 5/6 to check for healing and possible dilation if patient agreeable.
-Follow up appt made in office with MANAV German on 11/08/23 at 11:30
Subjective
Subjective
Date of Service: October 06, 2023
Patient tolerating clear liquid diet. He denies any pain. Discussed with Import Manager and RN. Patient with liquid brown stool this am. Patient agreeable for colonoscopy. Patient was constipated with fecal impaction s/p manual disimpaction in
endoscopy suite yesterday. EGD with non bleeding esophageal ulcers, benign appearing esophageal stenosis, irregular Z Line and 4 cm hiatal hernia. Would recommend repeat EGD in 8 weeks to check for healing with Dr. Banks. Follow up appt made for
patient in the office as well.
Objective
Data Reviewed
Laboratory Data:
Laboratory Results
10/06/23 05:37
10/06/23 05:37
Laboratory Results
PT 15.4 Sec (11.4-14.6) H 10/02/23 06:22
INR 1.24 10/02/23 06:22
Magnesium 2.0 mg/dl (1.6-2.3) 10/06/23 05:37
Total Bilirubin 0.5 mg/dl (0.2-1.3) 09/30/23 06:00
AST 19 U/L (17-59) 09/30/23 06:00
ALT 14 U/L (0-50) 09/30/23 06:00
Alkaline Phosphatase 80 U/L (38-126) 09/30/23 06:00
Lipase 50 U/L (23-300) 09/29/23 15:35
Vital Signs and I&O:
Vital Signs
Temp Pulse Resp BP Pulse Ox
98.6 F 69 17 105/64 94
10/06/23 11:27 10/06/23 11:27 10/06/23 11:27 10/06/23 11:27 10/06/23 11:27
I&O
10/05/23 10/06/23 10/07/23
06:59 06:59 06:59
Intake Total 780 / 780
Output Total 50 / 50
Balance 780 / 780 -50 / -50
Physical Exam
Physical Exam
HEENT: Anicteric
Cardiology: Normal Sinus Rhythm
Pulmonary: Clear
GI: Soft, Non Distended, Non Tender and Normal Bowel Sounds
Extremities: No Edema
Neuro: Non Focal
[2023-10-06] MEDS: CITROMA 300 ML PO (14:31)
--- NOTE | 2023-10-06 16:09 | PN.CDI ---
CDI
- -
CDI:
Physician Documentation Request
Admit Date: 09/30/23 10:27
Dear Doctor Malcolm,
RD note states 'CBW (10/04) 121 lbs 4 ox BMI 14.8 underweight, down from (10/01) 126 lb 2 oz BMI 15.4 under wt/ht. wt hx (04/21/23) 138 lb; 9.5% wt loss over 5 months. Pt meets criteria for moderate protein calorie malnutrition of chronic illness with
poor intake < 75% of estimated needs for about 1 month cryptanalyst, moderate loss of subcutaneous fat (orbital, triceps), moderate loss muscle (clavicle, temporal)
Based on the information, which of the following most accurately represents the patient's nutritional status?
Moderate Malnutrition
Underweight without malnutrition
No nutritional deficiency
Other (please specify)
[place] Criteria ([facility] Hospitalist 2017)
2 or more criteria must be present for either
non severe or severe malnutrition
Note that the criteria differs related to the
presence of an acute or chronic illness
Acute Illness Chronic Illness
Energy Intake Non Severe: <75% for >7 days Non Severe: <75% for >1 month
Severe: <50% for >5 days Severe: <75% for >1 month
Weight Loss Non Severe: 1-2% over 1 week Non Severe: 5% over 1 month
5% over 1 month 7.5% over 3 months
7.5% over 3 months 10% over 6 months
1 year N/A 20% over 1 year
Severe: >2% over 1 week Severe: >5% over 1 month
>5% over 1 month >7.5% over 3 months
>7.5% over 3 months >10% over 6 months
1 year N/A >20% over 1 year
Body Fat Non Severe: Mild Decrease Non Severe: Mild Loss
Severe: Moderate Decrease Severe: Severe Loss
Muscle Mass Non Severe: Mild Decrease Non Severe: Mild Loss
Severe: Moderate Decrease Severe: Severe Loss
Fluid Accumulation Non Severe: Mild Accumulation Non Severe: Mild Accumulation
Severe: Moderate to severe Severe: Moderate to severe
accumulation accumulation
Reduced Professor Of English Strength Non Severe: N/A Non Severe: N/A
Severe: Measurably reduced Severe: Measurably reduced
Additional criteria that can be used to Determine if Mild or Moderate Malnutrition (Merck Manual 2018)
Mild Moderate Severe
Albumin gm/dl <3.0 gm/dl <2.5 gm/dl <2.0 gm/dl
Pre Albumin mg/dl <15 gm/dl <10 mg/dl <5.0 mg/dl
BMI <18.5 <17 <16
Use of terms such as suspected, likely, concern for, or probable (associated with a specific diagnosis that is being evaluated, monitored, or treated as if it exists) are acceptable and can be coded in the inpatient setting, when documented at the
time of discharge.
Thank you,
Komal Cook RN, BSN
CDI Specialist
tiger text
Please use your independent medical judgment in providing your response.
[2023-10-06] MEDS: GAVILAX 238 GM PO (19:10)
[2023-10-06] MEDS: FLUSH (NSS) 2 FLUSH IV (20:41)
--- NOTE | 2023-10-06 21:51 | VATNOTE ---
Client noted to have 5cm x 6cm firm, red, indurated phlebitic area on right forearm. Warm and very tender to touch. 6cm palpable cord. Afebrile. Primary care RN aware. Warm blanket applied. K-pad ordered. VAT to follow
[2023-10-06] MEDS: MIRALAX PO (23:46)
[2023-10-07] VITALS (12 sets, daily range): BP systolic 10–139; BP diastolic 53–81; PULSE 86; O2SAT 99
[2023-10-07 05:54] LABS: Hematocrit 27.6 % (39.0-52.0); Mean Corp Hgb Conc. 32.6 g/dL (33.0-37.0); Mean Corpuscular Hgb 29.2 pg (27.0-31.0); Mean Corpuscular Volume 89.6 fL (80.0-94.0); Mean Platelet Volume 9.4 fL (7.4-10.4); Platelet Count 281 10^3/uL (130-400); Red Blood Cell Count 3.08 10^6/uL (4.70-6.10); Red Cell Dist. Width 16.4 % (11.5-14.5); White Blood Cell Count 7.3 10^3/uL (4.8-10.8)
[2023-10-07 06:20] LABS: ALT (SGPT) 11 U/L (0-50); AST (SGOT) 18 U/L (17-59); Albumin 2.3 g/dl (3.5-5.0); Alkaline Phosphatase 87 U/L (38-126); Blood Urea Nitrogen 7 mg/dl (9-20); Calcium 8.1 mg/dl (8.4-10.2); Carbon Dioxide 22 mmol/L (22-30); Chloride 105 mmol/L (98-107); Estimated Creatinine Clearance 50 ml/min; Glucose 94 mg/dl (70-99); Potassium 3.9 mmol/L (3.5-5.1); Sodium 132 mmol/L (135-145); Total Bilirubin 0.4 mg/dl (0.2-1.3); Total Protein 4.9 g/dl (6.3-8.2); eGFR > 60.00
--- NOTE | 2023-10-07 07:14 | PTCARENOTE ---
Patient tolerated 4 of 5 cups of bowel prep. Still with dark liquid stool. GI informed. Will order tap water enema.
[2023-10-07] MEDS: NSS (PRESERVATIVE FREE) 10 ML IV ×2 (08:30→19:59)
[2023-10-07] MEDS: MIRALAX 17 GRAMS PO ×3 (08:30→23:12)
[2023-10-07] MEDS: TOPROL XL 25 MG PO (08:31)
[2023-10-07] MEDS: PROTONIX IV 40 MG IV ×2 (08:31→19:58)
--- NOTE | 2023-10-07 09:25 | VATNOTE ---
Patient with reported phlebitic area to right forearm. Area remains red and swollen with palpable cord. Patient reports it is tender to touch, but states it feels improved. No drainage noted.
--- NOTE | 2023-10-07 10:50 | W.PN.HOSP.TC ---
Addendum entered and electronically signed by Serena Fowler MD 10/07/23 14:07:
Moderate Malnutrition
-appreciate dietary
Original Note:
Today's Communication/Plan
-
NPO for colonoscopy today
Assessment / Plan
Assessment / Plan
EGD/[facility]
10/04
Impression:� � � � � � - Esophageal ulcers with no bleeding and no stigmata
�� � � � � � � � � � � of recent bleeding. Biopsied.
�� � � � � � � � � � � - Benign-appearing esophageal stenosis.
�� � � � � � � � � � � - Nodular mucosa in the esophagus. Biopsied.
�� � � � � � � � � � � - Z-line irregular, 28 to 40 cm from the incisors.
�� � � � � � � � � � � Biopsied.
�� � � � � � � � � � � - 4 cm hiatal hernia.
�� � � � � � � � � � � - Normal stomach.
Recommendation:� � � � - Continue present medications. Start protonix 40 BID.
�� � � � � � � � � � � - Await pathology results.
�� � � � � � � � � � � - Clear liquid diet (see colon report).
�� � � � � � � � � � � - Repeat upper endoscopy in 8 weeks to check healing
�� � � � � � � � � � � with Dr. Banks advanced endo with possible dilation if
�� � � � � � � � � � � patient agreeable (would need to be done in 11/21).
#Fecal impaction
#Abdomen pain/nausea/vomiting 2/2 above
-Diarrhea likely overflow incontinence
-CT abdomen pelvis shows significant stool distention of the rectum most compatible with fecal impaction
-s/p bowel regimen and prep but patient remained with impaction on colo 10/04
-s/p repeat prep and for colo again today (10/06)
# Progressive anemia concerning for underlying GI malignancy
#Iron deficiency anemia
#Esophageal Ulcers and benign appearing stenosis
-Hemoglobin of 8 from 15 in March
-s/p IV Iron
-Blood consent scanned into [employer].
-GI consult appreciated
-s/p EGD 10/04 with finding esophageal ulcers, see above
-continue PPI
-F/U GI plans on colo
#Thrombocytosis
-monitor for now. Resolved.
# Hypokalemia
-Replete/monitor
Chronic HFpEF
-resume lasix once back on diet
History of CVA
Hx of saddle PE in 2019
-Eliquis held for procedure - resume when OK with GI
Afib with RVR
-during procedure
-AIRCRAFT STRUCTURAL DESIGN ENGINEER Metop resumed
Essential hypertension
-AIRCRAFT STRUCTURAL DESIGN ENGINEER Metop
- Losartan held
-stop midodrine and monitor BP
Hypercholesterolemia
-not on statin.
CKD 3B
-Renal function at baseline
GERD
Full code
DVT prophylaxis�SCDs in setting of anemia/procedural requirement/concern for malignancy
updated CONSUELO Stefanie over the phone in details on 09/30 and 10/02 and 10/05
PT/OT-SNF once medically ready.
Anticipated Discharge: 24 - 48 hours
Subjective/Interval History
-
Date of Service: October 07, 2023
no new complaints
Objective Data
-
Labs:
Laboratory Results
10/07/23
05:28
WBC 7.3
Hgb 9.0 L
Hct 27.6 L
Plt Count 281
Sodium 132 L
Potassium 3.9
Chloride 105
Carbon Dioxide 22
BUN 7 L
Creatinine 1.0
Glucose 94
Calcium 8.1 L
Total Bilirubin 0.4
AST 18
ALT 11
Alkaline Phosphatase 87
Vital Signs:
Vital Signs
Temp Pulse Resp BP Pulse Ox
98.4 F 78 17 139/81 100
10/07/23 07:44 10/07/23 07:44 10/07/23 07:44 10/07/23 07:44 10/07/23 07:44
I&O
10/06/23 10/07/23 10/08/23
06:59 06:59 06:59
Intake Total 1020 / 1020
Output Total 50 / 50 1250 / 1250
Balance -50 / -50 -230 / -230
Review of Systems
-
History Source: Patient
All other systems: Reviewed and negative
Physical Exam
-
General: No Apparent Distress, Appears Chronically Ill and Cachectic
HEENT: Normocephalic, Atraumatic and Moist Mucous Membranes
Respiratory: Clear to Auscultation
Cardiac: Regular Rhythm and S1/S2; Negative Murmur, Rub or Gallop
GI: Soft, Nontender, Normal Bowel Sounds and Distended; Negative Organomegaly
Rectal: Deferred by Provider
Musculoskeletal: No Clubbing, No Cyanosis and No Edema
Skin: Negative Rash
Neuro: Awake, Alert, Oriented, No Motor Deficits and Nonfocal/Grossly Intact
Psych: Calm
Data Reviewed
-
Diagnostic Radiology: Report Reviewed by me
Labs: Labs Reviewed by me
--- NOTE | 2023-10-07 15:00 | CM ---
Addendum entered by Joan Obrien 10/07/23 16:40:
Called to obtain auth [phone]
Spoke with Akil
Given Case ID - [id number]
Clinicals faxed to [phone]
Original Note:
CM following for d/c planning
Notified by pt will be ready tomorrow for transfer to [facility]
Accepted by [facility] - family's [facility] [place]
Spoke with Ngozi at [place] - can accept tomorrow
Spoke with pts family member Stefanie - agrees with [place]
Will obtain auth
Plan - transfer to [facility] - when medically stable, auth pending
[2023-10-08 06:24] LABS: Hematocrit 27.9 % (39.0-52.0); Hemoglobin 8.9 g/dL (13.0-18.0); Mean Corp Hgb Conc. 31.9 g/dL (33.0-37.0); Mean Corpuscular Hgb 28.8 pg (27.0-31.0); Mean Corpuscular Volume 90.3 fL (80.0-94.0); Mean Platelet Volume 9.5 fL (7.4-10.4); Platelet Count 244 10^3/uL (130-400); Red Blood Cell Count 3.09 10^6/uL (4.70-6.10); Red Cell Dist. Width 16.5 % (11.5-14.5); White Blood Cell Count 6.3 10^3/uL (4.8-10.8)
[2023-10-08 06:51] LABS: Blood Urea Nitrogen 11 mg/dl (9-20); Calcium 7.8 mg/dl (8.4-10.2); Carbon Dioxide 22 mmol/L (22-30); Chloride 106 mmol/L (98-107); Estimated Creatinine Clearance 50 ml/min; Glucose 89 mg/dl (70-99); Magnesium 2.1 mg/dl (1.6-2.3); Potassium 3.9 mmol/L (3.5-5.1); Sodium 134 mmol/L (135-145); eGFR > 60.00
[2023-10-08 07:00] VITALS: BP 131/88
[2023-10-08] MEDS: TOPROL XL 25 MG PO (08:30)
[2023-10-08] MEDS: PROTONIX IV 40 MG IV (08:30)
[2023-10-08] MEDS: NSS (PRESERVATIVE FREE) 10 ML IV (08:30)
[2023-10-08] MEDS: MIRALAX 17 GRAMS PO ×2 (08:30→15:57)
--- NOTE | 2023-10-08 08:43 | VATNOTE ---
Phlebitic area in right arm remains red with palpable cord. Patient notes area remains tender, but improved per him. No drainage noted.
[2023-10-08 10:00] VITALS: BMI 15.0
--- NOTE | 2023-10-08 10:09 | W.PN.HOSP.TC ---
Today's Communication/Plan
-
OK for DC to SNF today
Assessment / Plan
Assessment / Plan
EGD
10/04
Impression:� � � � � � - Esophageal ulcers with no bleeding and no stigmata
�� � � � � � � � � � � of recent bleeding. Biopsied.
�� � � � � � � � � � � - Benign-appearing esophageal stenosis.
�� � � � � � � � � � � - Nodular mucosa in the esophagus. Biopsied.
�� � � � � � � � � � � - Z-line irregular, 28 to 40 cm from the incisors.
�� � � � � � � � � � � Biopsied.
�� � � � � � � � � � � - 4 cm hiatal hernia.
�� � � � � � � � � � � - Normal stomach.
Recommendation:� � � � - Continue present medications. Start protonix 40 BID.
�� � � � � � � � � � � - Await pathology results.
�� � � � � � � � � � � - Clear liquid diet (see colon report).
�� � � � � � � � � � � - Repeat upper endoscopy in 8 weeks to check healing
�� � � � � � � � � � � with Dr. Darren esposito endo with possible dilation if
�� � � � � � � � � � � patient agreeable (would need to be done in 11/21).
Colonoscopy 10/07/23
Impression:� � � � � � - Preparation of the colon was fair.
�� � � � � � � � � � � - The examined portion of the ileum was normal.
�� � � � � � � � � � � - Diverticulosis in the sigmoid colon, at the hepatic
�� � � � � � � � � � � flexure and in the ascending colon.
�� � � � � � � � � � � - Erythematous mucosa at the splenic flexure. Treated
�� � � � � � � � � � � with argon plasma coagulation (APC).
�� � � � � � � � � � � - Two 1 to 2 mm polyps at the hepatic flexure, removed
�� � � � � � � � � � � with a jumbo cold forceps. Resected and retrieved.
�� � � � � � � � � � � - Three 4 to 7 mm polyps in the transverse colon, in
�� � � � � � � � � � � the ascending colon and in the cecum, removed with a
�� � � � � � � � � � � cold snare. Resected and retrieved.
�� � � � � � � � � � � - One 10 mm polyp in the ascending colon, removed with
�� � � � � � � � � � � a cold snare. Resected and retrieved. Clip was placed.
�� � � � � � � � � � � - Stool in the rectum.
�� � � � � � � � � � � - Internal hemorrhoids.
�� � � � � � � � � � � Suspect anemia due to esophageal ulcers seen on
�� � � � � � � � � � � endoscopy.
Recommendation:� � � � - Mechanical soft diet. Had esophageal stricture -
�� � � � � � � � � � � would avoid meats that could potentially be impacted.
�� � � � � � � � � � � Continue PPI BID until repeat endoscopy in 8 weeks.
�� � � � � � � � � � � - Continue present medications.
�� � � � � � � � � � � - Await pathology results.
�� � � � � � � � � � � - Repeat colonoscopy in 6 months because the bowel
�� � � � � � � � � � � preparation was fair.
�� � � � � � � � � � � Discussed with hospitalist - ok to resume Eliquis
�� � � � � � � � � � � tomorrow.
�� � � � � � � � � � � Continue on a bowel regimen - would discharge on
�� � � � � � � � � � � miralax BID.
�� � � � � � � � � � � Appointment 11:30 am with Jyoti Kaur as GI follow up.
�� � � � � � � � � � � GI will sign off, please call with ?s - likely
�� � � � � � � � � � � discharge tomorrow.
#Fecal impaction
#Abdomen pain/nausea/vomiting 2/2 above
-Diarrhea likely overflow incontinence
-CT abdomen pelvis shows significant stool distention of the rectum most compatible with fecal impaction
-s/p bowel regimen and prep but patient remained with impaction on colo 10/04
-s/p repeat prep and for colo again 10/06 - findings above
-OK for DC on Miralax
# Progressive anemia concerning for underlying GI malignancy
#Iron deficiency anemia
#Esophageal Ulcers and benign appearing stenosis
-Hemoglobin of 8 from 15 in March
-s/p IV Iron
-Blood consent scanned into [employer].
-GI consult appreciated
-s/p EGD 10/04 with finding esophageal ulcers, likely explains the anemia
-continue PPI
#Thrombocytosis
-monitor for now. Resolved.
# Hypokalemia
-Replete/monitor
Chronic HFpEF
-resume lasix today
History of CVA
Hx of saddle PE in 2019
-Eliquis held for procedure - OK to resume today per GI
Afib with RVR
-during procedure
-HAT BRIM CURLER Metop resumed
Essential hypertension
-HAT BRIM CURLER Metop
- Losartan held --> continue to hold on DC given low/normal BP recordings off this medicaiton
-stop midodrine and monitor BP
Hypercholesterolemia
-not on statin.
CKD 3B
-Renal function at baseline
GERD
Full code
DVT prophylaxis resume eliquis
updated CONSUELO Watts over the phone in details on 09/30 and 10/02 and 10/05
PT/OT-SNF once medically ready.
Anticipated Discharge: Today
Subjective/Interval History
-
Date of Service: October 08, 2023
feeling well
wants to leave
Objective Data
-
Labs:
Laboratory Results
10/08/23
05:52
WBC 6.3
Hgb 8.9 L
Hct 27.9 L
Plt Count 244
Sodium 134 L
Potassium 3.9
Chloride 106
Carbon Dioxide 22
BUN 11
Creatinine 1.0
Glucose 89
Calcium 7.8 L
Vital Signs:
Vital Signs
Temp Pulse Resp BP Pulse Ox
97.9 F 71 18 131/88 99
10/08/23 07:00 10/08/23 07:00 10/08/23 07:00 10/08/23 07:00 10/08/23 07:00
I&O
10/07/23 10/08/23 10/09/23
06:59 06:59 06:59
Intake Total 1020 / 1020
Output Total 1250 / 1250
Balance -230 / -230
Review of Systems
-
History Source: Patient
All other systems: Reviewed and negative
Physical Exam
-
General: No Apparent Distress, Appears Chronically Ill and Cachectic
HEENT: Normocephalic, Atraumatic and Moist Mucous Membranes
Respiratory: Clear to Auscultation
Cardiac: Regular Rhythm and S1/S2; Negative Murmur, Rub or Gallop
GI: Soft, Nontender, Normal Bowel Sounds and Distended; Negative Organomegaly
Rectal: Deferred by Provider
Musculoskeletal: No Clubbing, No Cyanosis and No Edema
Skin: Negative Rash
Neuro: Awake, Alert, Oriented, No Motor Deficits and Nonfocal/Grossly Intact
Psych: Calm
Data Reviewed
-
Diagnostic Radiology: Report Reviewed by me
--- NOTE | 2023-10-08 10:20 | W.DS.TRANS ---
DC Summary - Environmental Consultant
-
Discharge Instructions:
Discharge Diagnosis/Procedures anemia, esophageal ulcers with a stricture,
fecal impaction
Additional Diets soft and bite sized (IDDSI 6)
Activity As tolerated
Driving Restrictions As prior to admission
Bathing Restrictions None
Blood Work CBC and BMP in one week
Other Services PT,OT
Specialty Instructions Weigh Daily
Instructions:
Stand-Alone Forms:
Changes to Home Medications: Yes
Discharge Medications:
DC Medications w/original date entered in [facility]
furosemide 20 mg tablet 20 mg PO BID Fluid Retention/Swelling 04/17/23
metoprolol succinate 25 mg tablet,extended release 24 hr 25 mg PO DAILY Blood Pressure 09/29/23
apixaban 5 mg tablet (Eliquis) 5 mg PO BID Blood Clot Prevention/Tx 09/30/23
pantoprazole 40 mg tablet,delayed release (Protonix) 40 mg PO BID #120 tabs 10/08/23
polyethylene glycol 3350 17 gram oral powder packet (HealthyLax) 17 g PO BID #60 ea 10/08/23
Home Medication Changes
Take Protonix twice a day. You will get a repeat endoscopy in 8 weeks to monitor for esophageal ulcer healing.
Take Miralax twice a day for constipation. This can be decreased to daily if you are having frequent loose stools.
Stop Losartan. Your blood pressures were low normal range off of this medication.
Pending Results: Yes
Additional Pending Results:
pathology from EGD/[place]
[2023-10-08 11:00] VITALS: BP 127/68
--- NOTE | 2023-10-08 11:54 | CM ---
Addendum entered by Joan Obrien 10/08/23 14:16:
Transport scheduled for 4PM
Facility notified
Spoke with pts sister in law Stefanie - aware of transport
Discussed IMM
Plan - Transfer to [facility]
R [phone]
F [phone]
Addendum entered by Joan Obrien 10/08/23 13:09:
Received auth from [facility]
Auth # [id number]
Care Home level 2 for 5 days
Notified Ngozi at [facility]
Original Note:
Pt for d/c today
Family requesting [facility]
Waiting on auth
Plan - transfer to [facility] SNF when auth obtained
[2023-10-08] MEDS: ELIQUIS 5 MG PO (12:27)
--- NOTE | 2023-10-08 14:21 | W.DCSUMMARY ---
Discharge Summary
Discharge Data
Date of Admission: 09/30/23
Date of Discharge: 10/08/23
-
Pending Results: Yes
Additional Pending Results:
EGD/[place] biopsies
Hospital Course
Discharging Physician : Dr. Serena Fowler
Disposition : SNF
Primary care physician : Dr. Sahil Milian
Principal Discharge diagnosis : fecal impaction, anemia, esophageal ulcers and stricture
Hospital Course :
Mr. Ramos Smith is a 78-year-old male with past medical history of atrial fibrillation, CVA, chronic HFpEF, hypertension, hypercholesteremia, GERD, CKD 3B who presented with decreased eating and drinking for the past 3 to 4 weeks and
vomiting/diarrhea over past several days. Triage vitals with BP 93/64. Labs with Hg 9.5, PLT 437. CT A/P with finding of significant stool distention of the rectum consistent with fecal impaction. Patient was admitted to medicine with GI
consulting. EGD/[place] recommended for work-up of constipation and finding of anemia. Prep was difficult. EGD able to be performed 10/04 with finding of esophageal ulcers and stenosis. Prep was poor for colo and this was reattempted with success on
10/06 with finding of polyps. Etiology of anemia likely esophageal ulcers. He is discharged on protonix twice a day with plans for repeat EGD in 2 weeks. He is discharged on Miralax BID given significant constipation on admit. He is discharged to
SNF.
Losartan stopped at discharge for low blood pressure.
Time spent on discharge was 35 minutes.
Important imaging findings :
CT A/P 09/29/23
IMPRESSION:
1. Significant stool distention of the rectum is most compatible with a fecal impaction. Large stool burden elsewhere in the colon.
2. Stable chronic findings, as above.
Procedure findings :
EGD
10/04
Impression:� � � � � � - Esophageal ulcers with no bleeding and no stigmata
�� � � � � � � � � � � of recent bleeding. Biopsied.
�� � � � � � � � � � � - Benign-appearing esophageal stenosis.
�� � � � � � � � � � � - Nodular mucosa in the esophagus. Biopsied.
�� � � � � � � � � � � - Z-line irregular, 28 to 40 cm from the incisors.
�� � � � � � � � � � � Biopsied.
�� � � � � � � � � � � - 4 cm hiatal hernia.
�� � � � � � � � � � � - Normal stomach.
Recommendation:� � � � - Continue present medications. Start protonix 40 BID.
�� � � � � � � � � � � - Await pathology results.
�� � � � � � � � � � � - Clear liquid diet (see colon report).
�� � � � � � � � � � � - Repeat upper endoscopy in 8 weeks to check healing
�� � � � � � � � � � � with Dr. Darren esposito endo with possible dilation if
�� � � � � � � � � � � patient agreeable (would need to be done in 11/21).
Colonoscopy 10/07/23
Impression:� � � � � � - Preparation of the colon was fair.
�� � � � � � � � � � � - The examined portion of the ileum was normal.
�� � � � � � � � � � � - Diverticulosis in the sigmoid colon, at the hepatic
�� � � � � � � � � � � flexure and in the ascending colon.
�� � � � � � � � � � � - Erythematous mucosa at the splenic flexure. Treated
�� � � � � � � � � � � with argon plasma coagulation (APC).
�� � � � � � � � � � � - Two 1 to 2 mm polyps at the hepatic flexure, removed
�� � � � � � � � � � � with a Slingboxo cold forceps. Resected and retrieved.
�� � � � � � � � � � � - Three 4 to 7 mm polyps in the transverse colon, in
�� � � � � � � � � � � the ascending colon and in the cecum, removed with a
�� � � � � � � � � � � cold snare. Resected and retrieved.
�� � � � � � � � � � � - One 10 mm polyp in the ascending colon, removed with
�� � � � � � � � � � � a cold snare. Resected and retrieved. Clip was placed.
�� � � � � � � � � � � - Stool in the rectum.
�� � � � � � � � � � � - Internal hemorrhoids.
�� � � � � � � � � � � Suspect anemia due to esophageal ulcers seen on
�� � � � � � � � � � � endoscopy.
Recommendation:� � � � - Mechanical soft diet. Had esophageal stricture -
�� � � � � � � � � � � would avoid meats that could potentially be impacted.
�� � � � � � � � � � � Continue PPI BID until repeat endoscopy in 8 weeks.
�� � � � � � � � � � � - Continue present medications.
�� � � � � � � � � � � - Await pathology results.
�� � � � � � � � � � � - Repeat colonoscopy in 6 months because the bowel
�� � � � � � � � � � � preparation was fair.
�� � � � � � � � � � � Discussed with hospitalist - ok to resume Eliquis
�� � � � � � � � � � � tomorrow.
�� � � � � � � � � � � Continue on a bowel regimen - would discharge on
�� � � � � � � � � � � miralax BID.
�� � � � � � � � � � � Appointment 11:30 am with Jyoti Kaur as GI follow up.
�� � � � � � � � � � � GI will sign off, please call with ?s - likely
�� � � � � � � � � � � discharge tomorrow.
Discharge Plan
-
Patient Disposition: [facility]ci/SNF
Discharge Diagnosis/Procedures: anemia, esophageal ulcers with a stricture, fecal impaction
Additional Diets: soft and bite sized (IDDSI 6)
Activity: As tolerated
Driving Restrictions: As prior to admission
Bathing Restrictions: None
Blood Work: CBC and BMP in one week
Other Services: PT and OT
Specialty Instructions: Weigh Daily- Call MD for wt gain/loss 3 lbs overnight/5 lbs in 1 week
Referrals:
Sahil Milian MD [Family Provider] - in less than 1 week
Jyoti Kaur PA-C [Specified Professional Personl] - 11/08/23 11:30 am (Please call to reschedule if you can not keep this appointment. If your insurance requires a referral please contact your primary care physician prior to your appointment. )
Additional Discharge Medication Instructions: Take Protonix twice a day. You will get a repeat endoscopy in 8 weeks to monitor for esophageal ulcer healing.
Take Miralax twice a day for constipation. This can be decreased to daily if you are having frequent loose stools.
Stop Losartan. Your blood pressures were low normal range off of this medication.
Prescriptions:
New
polyethylene glycol 3350 [HealthyLax] 17 gram Powder In Packet
17 g PO BID Qty: 60 0RF
Rx Instructions:
decrease to daily if having frequent loose stools
pantoprazole [Protonix] 40 mg tablet,delayed release (DR/EC)
40 mg PO BID Qty: 120 0RF
Continued
furosemide 20 MG tablet
20 mg PO BID@0800,1600
metoprolol succinate 25 mg tablet extended release 24 hr
25 mg PO DAILY
Eliquis 5 MG tablet
5 mg PO BID
Discontinued
losartan 25 mg Tablet
25 mg PO DAILY
Discharge Orders:
Discharge Patient (As Directed); Ordered 10/08/23
Ordered By: Serena Fowler
[2023-10-08 15:00] VITALS: BP 112/76
[2023-10-08] MEDS: LASIX 20 MG PO (15:57)
--- NOTE | 2023-10-08 17:11 | PTCARENOTE ---
Attempted to call report to [facility]. Goat Farmer stated 'nurse is busy, call back later'. Informed patient was on the way. Will attempt again later.
== END 2023-10-08 17:06 | DRG 389 ==
LOC: 3 WEST ACU 10:27
PROVIDERS: Emergency Medicine; Hospitalist; Internal Medicine Gastroenterology; Nurse Practitioner; ADMITTING PHYSICIAN Hospitalist; ATTENDING PHYSICIAN Student in an Organized Health Care Education/Training Program; CONSULT PHYSICIAN Internal Medicine; EMERGENCY PHYSICIAN Emergency Medicine; FAMILY PHYSICIAN Family Medicine
PROC: 0DBH8ZX Excision of Cecum, Via Natural or Artificial Opening Endoscopic, Diagnostic (ICD-10-PCS; 2023-10-05)
PROC: 0DBL8ZX Excision of Transverse Colon, Via Natural or Artificial Opening Endoscopic, Diagnostic (ICD-10-PCS; 2023-10-05)
PROC: 0DBK8ZX Excision of Ascending Colon, Via Natural or Artificial Opening Endoscopic, Diagnostic (ICD-10-PCS; 2023-10-05)
DX: K56.41 Fecal impaction (principal); E44.0 Moderate protein-calorie malnutrition; K22.10 Ulcer of esophagus without bleeding; R64 Cachexia; I50.32 Chronic diastolic (congestive) heart failure; I13.0 Hypertensive heart and chronic kidney disease with heart failure and stage 1 through stage 4 chronic kidney disease, or unspecified chronic kidney disease; E87.1 Hypo-osmolality and hyponatremia; Z68.1 Body mass index [BMI] 19.9 or less, adult; Z87.891 Personal history of nicotine dependence; D50.0 Iron deficiency anemia secondary to blood loss (chronic); K52.9 Noninfective gastroenteritis and colitis, unspecified; R62.7 Adult failure to thrive; E87.6 Hypokalemia; I48.91 Unspecified atrial fibrillation; E78.00 Pure hypercholesterolemia, unspecified; N18.32 Chronic kidney disease, stage 3b; K21.9 Gastro-esophageal reflux disease without esophagitis; D12.2 Benign neoplasm of ascending colon; K22.2 Esophageal obstruction; K22.89 Other specified disease of esophagus; K44.9 Diaphragmatic hernia without obstruction or gangrene; K57.30 Diverticulosis of large intestine without perforation or abscess without bleeding; K64.0 First degree hemorrhoids; K63.89 Other specified diseases of intestine; D12.3 Benign neoplasm of transverse colon; D12.0 Benign neoplasm of cecum
CPT/HCPCS: 88305; 74177; 80048; 80053; 81003; 81015; 82607; 82728; 82746; 83540; 83550; 83690; 83735; 84443; 85014; 85018; 85025; 85027; 85610; 86850; 86900; 86901; 87086; 88342; 96361; 96374; 96375; 97116; 97163; 97167; 97530; 97535; 99285; J2916; Q9967

== ENCOUNTER 2023-11-25 15:01 | Emergency (ER) | payer OTHER, SELFPAY ==
[2023-11-25 15:05] VITALS: BP 116/84
--- NOTE | 2023-11-25 18:26 | CM ---
CM met with patient and niece in room. Patient's niece stated that patient's SALES REPRESENTATIVE [employer] will not return unless patient's scabies is treated. Niece stated that patient's aid is through the waiver program and is from [facility]. Patient was known to [place]
after being discharged from [facility].
Patient's niece is tearful and she's not sure how to manage without the patient's aide. CM will refer patient to [facility] for further skilled care and COMMUNITY DEVELOPMENT DIRECTOR for assistance with Elevations.
Patient's nice is agreeable to that plan.
CM will send referral via [facility].
--- NOTE | 2023-11-26 00:05 | ED.GENMED ---
History of Present Illness
General
Chief Complaint: Skin Problem
Source: patient and family (Niece)
Exam Limitations: none
Time Seen by Provider: 11/25/23 18:00
Nursing documentation reviewed up to this point in time: agreed with
Travel History
Have you had any contact with someone who has COVID-19?: No
Do you have any symptoms of coronavirus? Fever > 100 degrees, chills, cough, shortness of breath, sore throat, loss of taste or smell, muscle aches, or headache?: No
History of Present Illness
History of Present Illness:
78-year-old male with history as documented presents for evaluation of rash. Patient has noticed pruritic rash mainly on the low back but also on the arms over the past week or so. His niece is at bedside says that a visiting nurse noticed that
and suggested that it could be related to scabies and recommended he go for evaluation. He denies any fevers or chills. He denies any new skin products. No other complaints. His niece is very concerned because he relies on visiting nursing to
help with his ADLs and they are refusing to see him with concern for scabies.
Past History
Past History
ED Past Medical History: Arrthythmia (afib), CVA, HTN and Hypercholesterolemia
ED Past Surgical History: None
Social History
Tobacco: Former smoker (quit x 30 yrs)
Alcohol: None
Drug: None
Review of Systems
Review of Systems
All Other Systems: ROS reviewed and negative except as documented in HPI and ROS
Skin: Reports itching and rash
Phy Exam
Physical Exam
Physical Exam:
General: Awake, alert, oriented x3; no acute distress
Head: Normocephalic, atraumatic
Eyes: Conjunctiva normal
Throat: Airway intact, handling secretions; no oral ulcerations or lesions
Neck: Trachea midline
Lungs: Breathing comfortably no distress
Heart: Regular rate
Neuro: Cranial nerves grossly intact, speech fluid
Skin: Patient has scattered erythematous papular lesions on the low back, somewhat around the waistband as well distal forearm around the dorsum of the wrist with some excoriations
Extremities: No edema, warm and well-perfused
Scores
Heart Failure Risk
Heart Failure Risk Score: Not Applicable
Heart Score for Chest Pain Patients
STEMI patient?: Not applicable
Withdrawal Assessment of Alcohol
Withdrawal Assessment Completed?: Not applicable
Course
Vital Signs
Initial and Last Documented VS:
Initial Vital Signs
Temp Pulse Resp BP Pulse Ox
37.5 C 70 18 116/84 96
11/25/23 15:05 11/25/23 15:05 11/25/23 15:05 11/25/23 15:05 11/25/23 15:05
Last Documented Vital Signs
Temp Pulse Resp BP Pulse Ox
37.5 C 70 18 116/84 96
11/25/23 15:05 11/25/23 15:05 11/25/23 15:05 11/25/23 15:05 11/25/23 15:05
MDM/Problems Addressed
Differential Diagnosis Includes:
Scabies, atopic dermatitis, dry skin
MDM/Problems Addressed:
78-year-old male presents for evaluation of papular pruritic rash as described�concern for scabies. Niece lives with him has similar rash. Vital signs are normal. Exam is consistent with scabies. Will treat with permethrin. Follow-up with PCP.
Case management evaluated at bedside to help with visiting nursing. All questions answered.
*Pulse Oximetry
Patient hypoxic: no
*Critical Care Note
Total Time (30-74mins, 75-104mins- exclusive of procedures): Not Applicable
Data Reviewed
Source: patient and family
Patient Management
Discussion with other providers: Other (Discussed with case management)
ED Attending Note
-
Portions of this chart may have been created with voice recognition software.� Occasional wrong word or��sound alike� substitutions may have occurred due to the inherent limitations of voice recognition software.
Discharge Plan
Departure
Patient Disposition: Home (Routine Discharge)
Date of Disposition: 11/25/23
Time of Disposition: 18:24
Patient with high blood pressure during this ER visit?: No
Discharge Problem:
Scabies
Instructions: Scabies
Prescriptions:
New
permethrin [Elimite] 5 % cream
1 applic topical Q14D Qty: 60 0RF
No Action
furosemide 20 MG tablet
20 mg PO BID@0800,1600
metoprolol succinate 25 mg tablet extended release 24 hr
25 mg PO DAILY
Eliquis 5 MG tablet
5 mg PO BID
polyethylene glycol 3350 [HealthyLax] 17 gram Powder In Packet
17 g PO BID Qty: 60 0RF
Rx Instructions:
decrease to daily if having frequent loose stools
pantoprazole [Protonix] 40 mg tablet,delayed release (DR/EC)
40 mg PO BID Qty: 120 0RF
Activity Restrictions/Additional Instructions:
Permethrin�Cream 5%: Apply to all areas of the body from the neck to soles of feet; leave on for 8 to 14 hours before removing by washing (shower or bath). For older adults, also apply on the hairline, neck, scalp, orthodox, and forehead.
Thank you for visiting the Emergency Department at [facility].
1. Please schedule a follow up appointment as directed. Call first thing tomorrow morning to make an appointment.
2. If indicated, please take your medications as instructed and indicated on discharge paperwork.
3. If any of your symptoms do not improve, or persist, or become more severe within 6-12 hours, please return to the emergency department for further care.
4. Please return to the emergency department if you develop a headache, neck pain/stiffness, fever greater than 100.4F, chest pain, shortness of breath, persistent nausea, vomiting, slurred speech, difficulty walking, numbness/tingling, weakness,
signs of infection or any other symptoms that are worrisome to you.
Please call [phone] if you have any questions.
Interventions
Interventions:
*Risk Screen - Suicide Last Done: 11/25/23 18:38
*General Assessment Last Done: 11/25/23 18:38
*Neglect/Abuse Screening Last Done: 11/25/23 18:38
ED- Fall Risk Assessment Last Done: 11/25/23 18:38
*ED COVID-19 Vaccine History Last Done: 11/25/23 15:05
*Nursing Disposition Last Done: 11/25/23 18:38
ED-Skin Assessment Last Done: 11/25/23 18:39
Discharge Date and Time
Discharge Date/Time: 11/25/23 18:39
Print Language: LAO
== END 2023-11-25 18:39 | disposition home or self-care (01) ==
LOC: EMR 15:01
PROVIDERS: EMERGENCY PHYSICIAN Emergency Medicine; FAMILY PHYSICIAN Family Medicine
DX: B86 Scabies (principal); I48.91 Unspecified atrial fibrillation; I10 Essential (primary) hypertension; E78.00 Pure hypercholesterolemia, unspecified; Z86.73 Personal history of transient ischemic attack (TIA), and cerebral infarction without residual deficits; Z87.891 Personal history of nicotine dependence
CPT/HCPCS: 99282

== ENCOUNTER 2024-01-10 12:51 | Emergency (ER) | payer OTHER, SELFPAY ==
[2024-01-10] VITALS (8 sets, daily range): BP systolic 94–115; BP diastolic 62–94
--- NOTE | 2024-01-10 14:10 | ED.GENMED ---
History of Present Illness
<Nissa Del Castillo PA-C - Last Filed: 01/10/24 23:47>
General
Chief Complaint: Skin Problem
Source: patient
Exam Limitations: none
Time Seen by Provider: 01/10/24 14:04
Nursing documentation reviewed up to this point in time: agreed with
History of Present Illness
History of Present Illness:
This is a 78 y/o male with a PMH of CVA w/ residual left sided weakness, HTN, HLP presenting from home for concerns of a rash x1 month. Patient believes it started about a week ago but his niece, his primary acute care nurse, believes it has been there
for 1 month. He is bed bound at baseline and states that he receives palliative care. Patient denies itchiness and pain at the sight of the rash. Denies purulent drainage. Denies fevers or chills, abdominal pain, nausea, vomiting, new medications,
tongue or lip swelling, shortness of breath, chest pain. Patient states that he is 'fine' and 'not sick.' He denies contact with bugs, outdoors. Niece on phone reports that she has been applying aloe vera to it with minimal improvement. She notes
that he had scabies a few months ago, but at that time it was on his hands, itchy, and she had it too.
Past History
<Nisas Del Castillo PA-C - Last Filed: 01/10/24 23:47>
Past History
ED Past Medical History: Arrthythmia (afib), CVA, HTN and Hypercholesterolemia
ED Past Surgical History: None
Social History
Tobacco: Former smoker (quit x 30 yrs)
Alcohol: None
Drug: None
Review of Systems
<Nissa Del Castillo PA-C - Last Filed: 01/10/24 23:47>
Review of Systems
All Other Systems: ROS reviewed and negative except as documented in HPI and ROS
Phy Exam
<Nissa Del Castillo PA-C - Last Filed: 01/10/24 23:47>
Physical Exam
Physical Exam:
General: Patient well appearing, in no acute distress
Skin: Maculopapular rash with some scabbing noted, extending from the left flank region all the way down to the left lateral thigh.
Head: Normocephalic, atraumatic
Eyes: Sclera non-icteric. EOMs intact. PERRLA.
Cardiac: Regular rate and rhythm, no murmurs
Peripheral Vascular: No lower extremity swelling or edema, 2+ dorsalis pedis pulses bilaterally
Pulm: Normal respiratory effort, no wheezes, rales, or rhonchi
Abdomen: No abdominal tenderness to palpation
Musculoskeletal: Patient has left upper extremity flexion contracture/rigidity as a result of left sided weakness from prior stroke
Neuro: AAOX3. CN II-XII intact, no focal neurologic deficits. Chronically decreased strength in left upper extremity.
Psychiatric: Appropriate mood and affect.
Course
<Nissa Del Castillo PA-C - Last Filed: 01/10/24 23:47>
Orders/Labs/Results
Orders:
Orders
01/10/24 12:57
Electrocardiogram (*1) Urgent
Reason for Study: Fatigue / Weakness
EKG- Treatment ONCE
Vital Signs
Initial and Last Documented VS:
Initial Vital Signs
Temp Pulse Resp BP Pulse Ox
98.4 F 73 14 104/75 97
01/10/24 13:06 01/10/24 13:06 01/10/24 13:06 01/10/24 13:06 01/10/24 13:06
Last Documented Vital Signs
Temp Pulse Resp BP Pulse Ox
98.4 F 73 14 115/77 97
01/10/24 13:06 01/10/24 13:06 01/10/24 13:06 01/10/24 19:00 01/10/24 19:00
<Jennie Luong MD - Last Filed: 01/10/24 14:41>
Orders/Labs/Results
Orders:
Orders
01/10/24 12:57
Electrocardiogram (*1) Urgent
Reason for Study: Fatigue / Weakness
EKG- Treatment ONCE
Vital Signs
Initial and Last Documented VS:
Initial Vital Signs
Temp Pulse Resp BP Pulse Ox
98.4 F 73 14 104/75 97
01/10/24 13:06 01/10/24 13:06 01/10/24 13:06 01/10/24 13:06 01/10/24 13:06
Last Documented Vital Signs
Temp Pulse Resp BP Pulse Ox
98.4 F 73 14 115/77 97
01/10/24 13:06 01/10/24 13:06 01/10/24 13:06 01/10/24 19:00 01/10/24 19:00
<Nissa Del Castillo PA-C - Last Filed: 01/10/24 23:47>
MDM/Problems Addressed
Differential Diagnosis Includes:
ddx include shingles, folliculitis, scabies, contact dermatitis
MDM/Problems Addressed:
Rash:
This is a 78 y/o male with a PMH of CVA w/ residual left sided weakness, HTN, HLP presenting from home for concerns of a rash x1 month. Patient has no other symptoms, feels well, denies f/c, abdominal pain, nausea or vomiting. Rash is
asymptomatic--not itchy or painful, scabbed over lesions not actively draining. Considering lack of symptoms, atypical area, lack of family with similar symptoms, doubt scabies. Highest on the differential currently include a bacterial folliculitis
vs shingles. Will treat for both. Updated home nurse and niece. No indication for steroids at this time. Primary evaluation encouraged. Return precautions discussed.
Chronic conditions affecting care:
stroke, HTN, HLP
Acute Exacerbation and/or Progression of Chronic Illness:
stroke, HTN, HLP
<Nissa Del Castillo PA-C - Last Filed: 01/10/24 23:47>
*Pulse Oximetry
Patient hypoxic: no
*Critical Care Note
Total Time (30-74mins, 75-104mins- exclusive of procedures): Not Applicable
Data Reviewed
Review of Other/Old Records Reveals: Records (reviewed er physician documentation in which patient had scabies) and Discharge Summary (reviewed discharge summary from 10/08/23)
Further Testing Considered But Not Given:
considered labs however patient has no systemic signs or symptoms
<Nissa Del Castillo PA-C - Last Filed: 01/10/24 23:47>
Patient Management
Escalation/DeEscalation of care consider admission/obs:
No indication for admission. Patient stable for discharge.
ED Attending Note
<Nissa Del Castillo PA-C - Last Filed: 01/10/24 23:47>
-
Portions of this chart may have been created with voice recognition software.� Occasional wrong word or��sound alike� substitutions may have occurred due to the inherent limitations of voice recognition software.
<Jennie Luong MD - Last Filed: 01/10/24 14:41>
ED Attending Note
Patient seen and examined by attending physician: Yes
ED Attending Note:
78-year-old male with a rash that was noted today although he reports that it has been there for some time. He does not report itching or pain although overall patient a poor historian. No fevers, chills, abdominal pain, numbness, tingling,
drainage, or other complaints. On exam, patient has a rash noted at the left lower lateral back area, no secondary drainage, streaking, fluctuance. It is not tender to the touch. It appears maculopapular with some scab formation questionable
prior vesicles. Rash could be consistent with shingles versus folliculitis. Will treat accordingly with recommendations for close follow-up.
Discharge Plan
Departure
Patient Disposition: Home (Routine Discharge)
Date of Disposition: 01/10/24
Time of Disposition: 14:52
Patient with high blood pressure during this ER visit?: Yes
Condition: Good
Discharge Problem:
Rash and nonspecific skin eruption
Instructions: Skin Rash (DC), Bacterial Folliculitis (DC), Shingles
Prescriptions:
New
valacyclovir 1 gram tablet
1,000 mg PO TID 7 Days Qty: 21 0RF
cephalexin 500 mg capsule
500 mg PO QID 7 Days Qty: 28 0RF
No Action
furosemide 20 MG tablet
20 mg PO BID@0800,1600
metoprolol succinate 25 mg tablet extended release 24 hr
25 mg PO DAILY
Eliquis 5 MG tablet
5 mg PO BID
polyethylene glycol 3350 [HealthyLax] 17 gram Powder In Packet
17 g PO BID Qty: 60 0RF
Rx Instructions:
decrease to daily if having frequent loose stools
pantoprazole [Protonix] 40 mg tablet,delayed release (DR/EC)
40 mg PO BID Qty: 120 0RF
permethrin [Elimite] 5 % cream
1 applic topical Q14D Qty: 60 0RF
Activity Restrictions/Additional Instructions:
Please begin an antibiotic called Keflex: Please take one tablet 4 times daily for 7 days.
Also start a medication called Valacyclovir: Please take one tablet 3 times daily for 7 days.
Please return to the emergency department should you experience fevers or chills, abdominal pain, spreading of the rash, increasing pain in the rash, chest pain, shortness of breath, syncopal episodes, or any other concerning signs or symptoms.
Please follow-up with your primary care provider in 1 week to ensure the resolution of your symptoms.
Interventions
Interventions:
*Risk Screen - Suicide Last Done: 01/10/24 13:07
*General Assessment Last Done: 01/10/24 13:07
*Neglect/Abuse Screening Last Done: 01/10/24 13:07
ED- Fall Risk Assessment Last Done: 01/10/24 14:04
*ED COVID-19 Vaccine History Last Done: 01/10/24 19:40
*Nursing Disposition Last Done: 01/10/24 19:40
ED-Skin Assessment Last Done: 01/10/24 13:15
Discharge Date and Time
Discharge Date/Time: 01/10/24 19:30
Print Language: CROATIAN
== END 2024-01-10 19:30 | disposition home or self-care (01) ==
LOC: EMR 12:51
PROVIDERS: EMERGENCY PHYSICIAN Emergency Medicine
DX: R21 Rash and other nonspecific skin eruption (principal); I10 Essential (primary) hypertension; I48.91 Unspecified atrial fibrillation; E78.00 Pure hypercholesterolemia, unspecified; Z86.73 Personal history of transient ischemic attack (TIA), and cerebral infarction without residual deficits
CPT/HCPCS: 99283; 93005